=== PATIENT | female | born 1975 | race Caucasian/White ===

== ENCOUNTER 2017-01-10 13:32 | Observation (INO) ==
[2017-01-10] MEDS ORDERED: 0.9 % Sodium Chloride 1,000 ML IVC ONE (14:22)
[2017-01-10] MEDS ORDERED: *HR* Morphine 2 MG/ML SYRINGE IVP ONE (14:22)
[2017-01-10] MEDS ORDERED: Ondansetron 4 MG/2 ML VIAL IVP ONE ×2 (14:22→16:18)
[2017-01-10 14:43] LABS: Basophils % 0.4 %; Eosinophils # 0.1 K/mcL (0.0-0.6); Hematocrit 39.1 % (35.3-44.9); Hemoglobin 12.6 g/dL (11.5-15.4); Immature Granulocytes % 0.3 % (0-4); Lymphocytes # 2.3 K/mcL (0.6-4.6); Mean Corpuscular HGB Conc 32.2 g/dL (31.6-35.5); Mean Corpuscular Hemoglobin 25.6 pg (28.0-33.3); Mean Corpuscular Volume 79.5 fL (83.0-100.0); Mean Platelet Volume 9.3 fL (9.4-12.4); Monocytes # 0.5 K/mcL (0.0-1.3); Monocytes % 7.2 %; Platelet Count 343 K/mcL (140-400); Red Blood Count 4.92 M/mcL (3.82-4.97); Red Cell Distribution Width 14.4 % (11.5-14.5); Segmented Neutrophils % 57.1 %
[2017-01-10 14:57] LABS: Alanine Aminotransferase 22 Units/L (0-55); Albumin 3.6 g/dL (3.5-5.0); Albumin/Globulin Ratio 0.9 (1.1-2.2); Alkaline Phosphatase 55 Units/L (38-126); Amylase 42 Units/L (25-125); Aspartate Amino Transferase 23 Units/L (5-34); BUN/Creatinine Ratio 6 (6-26); Bilirubin,Direct 0.2 mg/dL (0.0-0.5); Bilirubin,Indirect 0.2 mg/dL (0.0-1.2); Bilirubin,Total 0.4 mg/dL (0.2-1.2); Blood Urea Nitrogen 6 mg/dL (7-20); Calcium 9.3 mg/dL (8.6-10.8); Carbon Dioxide 22 mEq/L (19-29); Chloride 108 mEq/L (98-109); Glucose 101 mg/dL (70-99); Lipase 49 Units/L (8-78); Osmolality,Calculated 288 (280-300); Sodium 140 mEq/L (136-145); Total Protein 7.6 g/dL (6.0-8.3); eGFR For African Americans > 60 (> 60); eGFR For Non-African Americans > 60 (> 60)
--- NOTE | 2017-01-10 15:00 | Emergency Department Note ---
Disposition Clinical Impression: Intractable nausea and vomiting Qualifiers: Vomiting type: unspecified Qualified Code(s): R11.2 - Nausea with vomiting, unspecified Disposition: Admitted As Inpatient Condition: Fair Time of Disposition: 17:25 Abdominal Pain HPI - General Chief Complaint: ED Abdominal Pain Stated Complaint: vomiting Time Seen by Provider: 01/10/17 13:40 Source: patient Mode of arrival: ambulatory Limitations: no limitations Nursing Notes Reviewed: Yes Vital Signs Reviewed: Yes - History of Present Illness HPI Narrative: 41-year-old female with history of abdominal pain, patient has been having abdominal pain for several weeks. Nausea and vomiting. Patient states that she has recently been having diarrhea. Patient reports nonradiating 8 out of 10 suprapubic, cramping pain. She does have a history of endometriosis and is on Lupron, no recent vaginal bleeding or discharge. Patient states that she had negative brain status last week, negative ultrasound last week of her gallbladder. Pt Subjective Complaint: abdominal pain Consistency: intermittent Location: suprapubic Pain Scale: 7 Quality: cramping Radiation: suprapubic Migration to: no migration Improves with: nothing Worsens with: eating Associated symptoms: Reports: nausea, vomiting, diarrhea, fever, chills. Denies : dysuria, hematemesis, hematochezia, melena - Related Data Home Medications Medication Instructions Recorded Confirmed Lisinopril [Zestril] 5 mg PO DAILY 11/25/15 01/10/17 Cetirizine HCl [Zyrtec] 10 mg PO DAILY 02/06/16 01/10/17 Lovastatin 40 mg PO HS 02/06/16 01/10/17 Metformin [Glucophage] 1,000 mg PO BIDWM 02/06/16 01/10/17 Naproxen Sodium [Naprelan] 500 mg PO PRN PRN 02/06/16 01/10/17 Tizanidine HCl 2 - 4 mg PO HS 02/06/16 01/10/17 Norethindrone Acetate 5 mg PO DAILY 04/22/16 01/10/17 Fluocinonide [Fluocinonide] 1 appl TP 3XW 12/22/16 01/10/17 Glimepiride [Amaryl] 1 mg PO QAM 12/22/16 01/10/17 Leuprolide Acetate [Lupron Depot] 3.75 mg IM QMONTH 12/22/16 01/10/17 Sumatriptan Succ/Naproxen Sod 1 each PO DAILY PRN 12/22/16 01/10/17 [Treximet 85-500 mg Tablet] Albuterol Sulfate [Albuterol 2 puff IH Q4H PRN 01/10/17 01/10/17 Inhaler] Metoclopramide [Reglan] 10 mg PO TID PRN 01/10/17 01/10/17 Omeprazole [PriLOSEC] 40 mg PO DAILY 01/10/17 01/10/17 Pioglitazone HCl [Actos] 45 mg PO DAILY 01/10/17 01/10/17 SitaGLIPtin [Januvia] 100 mg PO DAILY 01/10/17 01/10/17 Sucralfate [Carafate] 1 gm PO ACHS 01/10/17 01/10/17 Previous Rx's Medication Instructions Recorded Ondansetron HCl [Zofran] 4 mg PO TID PRN #10 tablet 12/22/16 Allergies Allergy/AdvReac Type Severity Reaction Status Date / Time cefuroxime [From Ceftin] Allergy Rash Verified 01/10/17 13:36 darifenacin [From Enablex] Allergy See Verified 01/10/17 13:36 Comments Penicillins Allergy Rash Verified 01/10/17 13:36 Sulfa (Sulfonamide Allergy Rash Verified 01/10/17 13:36 Antibiotics) sulfamethoxazole Allergy Rash Verified 01/10/17 13:36 [From Bactrim] trimethoprim [From Bactrim] Allergy Rash Verified 01/10/17 13:36 metformin AdvReac Vomiting Verified 01/10/17 13:36 All systems ED: reviewed and negative except as stated. 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 HEENT: NCAT, sclera anicteric, PERRLA bilaterally, normal external ears bilaterally, nasal septum nondeviated, average dentition, MMM Neck: normal inspection, neck is supple, trachea midline Resp: normal chest inspection, CTA bilaterally, no resp distress CV: RRR, no m/g/r GI: Obese abdomen, tenderness to palpation suprapubic, no rebound or guarding. No palpable masses nor vital spinal megaly Back: normal inspection, no tenderness to palpation Neuro: A&O3, no gross motor or sensory deficits bilaterally MSK: normal inspection, bilateral UE and LE with normal ROM Psych: anxious Skin: No rashes, skin warm, dry, intact - General General appearance: alert, in no apparent distress Course Course Narrative: 41-year-old female with abdominal pain, no specific clear etiology we will check abdominal lab work, urinalysis evaluation and antiemetics and pain control , reassessed. Patient recently had a gallbladder ultrasound that was negative, except for gastric emptying study and scopes as an outpatient. CT Abdomen to evaluate for other abdominal pathology,. - Reevaluation(s) Reevaluation #1: Reevaluation, patient is required multiple rounds of morphine and Zofran and is still not achieve relief of her symptoms, patient does not think that she can tolerate going home and is not tolerating by mouth fluids and food at home. We will admit the patient for intractable nausea vomiting abdominal pain at this time. Hodspitalist edward accepted drug screen added. Time: 17:23 Vital Signs Temperature 97.5 F L 01/10/17 13:33 Pulse Rate 87 01/10/17 13:33 Respiratory Rate 16 01/10/17 13:33 Blood Pressure 125/00 01/10/17 13:33 O2 Sat by Pulse Oximetry 97 01/10/17 13:33 Temperature 97.5 F L 01/10/17 13:33 Pulse Rate 79 01/10/17 17:20 Respiratory Rate 16 01/10/17 17:58 Blood Pressure 125/88 01/10/17 17:58 O2 Sat by Pulse Oximetry 99 01/10/17 17:20 Oxygen Delivery Oxygen Delivery Room Air Abdominal Pain - MDM Narrative Medical decision making narrative: 41-year-old female admitted for intractable nausea vomiting, negative workup including negative , CT scan of abdomen, nonsurgical abdomen on exam however patient still continues to have pain despite analgesia and Zofran so was admitted to the hospitalist service, patient does request further endoscopic or colonoscopic evaluation, discussed that she will need to discuss this with her admitting service - Differential Diagnosis Differential Diagnosis: Likely: abdominal pain non-specific, acute appendicitis , diverticulitis - Medical Records Medical records reviewed: Yes I reviewed the patient's medical records. - Lab Data Lab results reviewed: Yes I reviewed the patient's lab results. Result diagrams: 01/10/17 14:36 01/10/17 14:36 Lab Results 01/10/17 01/10/17 01/10/17 Range/Units 13:15 13:15 13:15 WBC (4.3-11.1) K/mcL RBC (3.82-4.97) M/mcL Hgb (11.5-15.4) g/dL Hct (35.3-44.9) % MCV (83.0-100.0) fL MCH (28.0-33.3) pg MCHC (31.6-35.5) g/dL RDW (11.5-14.5) % Plt Count (140-400) K/mcL MPV (9.4-12.4) fL Immature Gran % (0-4) % Seg Neutrophils % % Lymphocytes % % Monocytes % % Eosinophils % % Basophils % % Neutrophils # (1.6-8.9) K/mcL Lymphocytes # (0.6-4.6) K/mcL Monocytes # (0.0-1.3) K/mcL Eosinophils # (0.0-0.6) K/mcL Basophils # (0.0-0.2) K/mcL Sodium (136-145) mEq/L Potassium (3.5-4.5) mEq/L Chloride (98-109) mEq/L Carbon Dioxide (19-29) mEq/L BUN (7-20) mg/dL Creatinine (0.57-1.11) mg/dL Est GFR ( Amer) (> 60) Est GFR (Non-Af Amer) (> 60) BUN/Creatinine Ratio (6-26) Glucose (70-99) mg/dL Calculated Osmolality (280-300) Calcium (8.6-10.8) mg/dL Total Bilirubin (0.2-1.2) mg/dL Direct Bilirubin (0.0-0.5) mg/dL Indirect Bilirubin (0.0-1.2) mg/dL AST (5-34) Units/L ALT (0-55) Units/L Alkaline Phosphatase (38-126) Units/L Troponin I (0-0.03) ng/mL Serum Total Protein (6.0-8.3) g/dL Albumin (3.5-5.0) g/dL Globulin (2.4-3.5) g/dL Albumin/Globulin Ratio (1.1-2.2) Amylase (25-125) Units/L Lipase (8-78) Units/L Urine Color Yellow (Yellow) Urine Clarity Cloudy A (Clear) Urine pH 6.0 (5.0-8.0) pH Units Ur Specific [place] 1.019 (1.010-1.025) Urine Protein Trace (Neg-Trace) mg/dL Urine Glucose (UA) Normal (Normal) mg/dL Urine Ketones Negative (Negative) mg/dL Urine Blood Negative (Negative) Urine Nitrite Negative (Negative) Urine Bilirubin Negative (Negative) Urine Urobilinogen Normal (Normal) mg/dL Ur Leukocyte Esterase Negative (Negative) Urine Microscopic RBC 0-3 (0-3) per hpf Urine Microscopic WBC 3-5 H (0-3) per hpf Ur Squamous Epith Cells Many H (None-Few) per lpf Urine Bacteria Moderate H (None-Few) per hpf Hyaline Casts None Seen (None-Few) per lpf Ur Culture Indicated? NO (NO) Urine Test Negative (Negative) Urine Opiates Screen Negative (Zkuisz=290) ng/mL Ur Barbiturates Screen Negative (Hfskxq=911) ng/mL Ur Phencyclidine Scrn Negative (Cutoff=25) ng/mL Ur Amphetamines Screen Negative (Dszufp=6068) ng/mL U Benzodiazepines Scrn Negative (Vuvhjj=528) ng/mL Urine Cocaine Screen Negative (Cutoff= 300) ng/mL U Marijuana (THC) Screen Negative (Cutoff = 50) ng/mL 01/10/17 01/10/17 01/10/17 Range/Units 14:36 14:36 14:36 WBC 7.1 (4.3-11.1) K/mcL RBC 4.92 (3.82-4.97) M/mcL Hgb 12.6 (11.5-15.4) g/dL Hct 39.1 (35.3-44.9) % MCV 79.5 L (83.0-100.0) fL MCH 25.6 L (28.0-33.3) pg MCHC 32.2 (31.6-35.5) g/dL RDW 14.4 (11.5-14.5) % Plt Count 343 (140-400) K/mcL MPV 9.3 L (9.4-12.4) fL Immature Gran % 0.3 (0-4) % Seg Neutrophils % 57.1 % Lymphocytes % 33.0 % Monocytes % 7.2 % Eosinophils % 2.0 % Basophils % 0.4 % Neutrophils # 4.0 (1.6-8.9) K/mcL Lymphocytes # 2.3 (0.6-4.6) K/mcL Monocytes # 0.5 (0.0-1.3) K/mcL Eosinophils # 0.1 (0.0-0.6) K/mcL Basophils # 0.0 (0.0-0.2) K/mcL Sodium 140 (136-145) mEq/L Potassium 4.0 (3.5-4.5) mEq/L Chloride 108 (98-109) mEq/L Carbon Dioxide 22 (19-29) mEq/L BUN 6 L (7-20) mg/dL Creatinine 1.01 (0.57-1.11) mg/dL Est GFR ( Amer) > 60 (> 60) Est GFR (Non-Af Amer) > 60 (> 60) BUN/Creatinine Ratio 6 (6-26) Glucose 101 H (70-99) mg/dL Calculated Osmolality 288 (280-300) Calcium 9.3 (8.6-10.8) mg/dL Total Bilirubin 0.4 (0.2-1.2) mg/dL Direct Bilirubin 0.2 (0.0-0.5) mg/dL Indirect Bilirubin 0.2 (0.0-1.2) mg/dL AST 23 (5-34) Units/L ALT 22 (0-55) Units/L Alkaline Phosphatase 55 (38-126) Units/L Troponin I 0.00 (0-0.03) ng/mL Serum Total Protein 7.6 (6.0-8.3) g/dL Albumin 3.6 (3.5-5.0) g/dL Globulin 4.0 H (2.4-3.5) g/dL Albumin/Globulin Ratio 0.9 L (1.1-2.2) Amylase 42 (25-125) Units/L Lipase 49 (8-78) Units/L Urine Color (Yellow) Urine Clarity (Clear) Urine pH (5.0-8.0) pH Units Ur Specific [place] (1.010-1.025) Urine Protein (Neg-Trace) mg/dL Urine Glucose (UA) (Normal) mg/dL Urine Ketones (Negative) mg/dL Urine Blood (Negative) Urine Nitrite (Negative) Urine Bilirubin (Negative) Urine Urobilinogen (Normal) mg/dL Ur Leukocyte Esterase (Negative) Urine Microscopic RBC (0-3) per hpf Urine Microscopic WBC (0-3) per hpf Ur Squamous Epith Cells (None-Few) per lpf Urine Bacteria (None-Few) per hpf Hyaline Casts (None-Few) per lpf Ur Culture Indicated? (NO) Urine Test (Negative) Urine Opiates Screen (Irqdlu=504) ng/mL Ur Barbiturates Screen (Jjgbvo=010) ng/mL Ur Phencyclidine Scrn (Cutoff=25) ng/mL Ur Amphetamines Screen (Fextja=5484) ng/mL U Benzodiazepines Scrn (Jmooui=497) ng/mL Urine Cocaine Screen (Cutoff= 300) ng/mL U Marijuana (THC) Screen (Cutoff = 50) ng/mL - Radiology Data Radiology results reviewed: Yes I reviewed the patient's radiology results. Abdomen/Pelvis CT 01/10/17 14:23 IMPRESSION: No acute findings within the abdomen or pelvis. Colonic diverticulosis with no acute features. No CT evidence of appendicitis. D/ / 01/10/2017 16:06:05 Ab Pete MD / [facility] Interpreting Provider: Ab Pete MD - EKG Data EKG attestation: Yes I reviewed and interpreted this EKG. EKG shows normal: sinus rhythm Rate: normal (60 bpm NV 145 0 74 QTc [address] elevations or depressions, noprevious EKG) When compared to previous EKG there are: previous EKG unavailable Attestation Statement - Attestation Attestation: I personally interviewed and examined this patient and my medical decision- making was reviewed with the ED Resident Physician, Dr. Medeiros. I agree with the documented findings, disposition and treatment plan as described in the documentation. Pt is a 41-year-old white female here with intermittent suprapubic abdominal pain since November. Patient has been having more frequent episodes, and insists that this pain has been postprandial in nature. Patient has been changing her diet and has had no relief of his suprapubic pain. Patient has no other symptoms no bowel changes no urinary symptoms no flank pain no fevers or chills. No vaginal complaints no abnormal vaginal bleeding. Patient is on Lupron for endometriosis and sees her COUNSELING DEPARTMENT CHAIR regularly. Labs and imaging here unremarkable. Patient is feeling better after medicine administration. I do not have any concerns for surgical abdomen as patient has no peritoneal signs and her abdominal exam has remained stable throughout her ED course. Reevaluation patient feels that if she goes home she will be able to tolerate anything by mouth and is afraid to consume anything beyond the baby feels that she has been having at home. She is still having ongoing suprapubic pain despite serial doses of IV pain medication in the emergency department. We will admit the patient for intractable lower abdominal pain as well as intractable nausea and vomiting. Patient's receiving IV fluids at this time and has had her pain medicine really administered. Patient's hemoglobin was stable at this time and case was discussed with the hospitalist at 1700
[2017-01-10 15:02] LABS: Bilirubin,Urine Negative (Negative); Blood,Urine Negative (Negative); Clarity,Urine Cloudy (Clear); Color,Urine Yellow (Yellow); Glucose,Urine (UA) Normal (Normal); Ketones,Urine Negative (Negative); Leukocyte Esterase,Urine Negative (Negative); Nitrite,Urine Negative (Negative); Protein,Urine Trace mg/dL (Neg-Trace); Specific Gravity,Urine 1.019 (1.010-1.025); Urobilinogen,Urine Normal (Normal)
[2017-01-10 15:04] LABS: Bacteria,Urine Moderate per hpf (None-Few); Hyaline Casts,Urine None Seen per lpf (None-Few); RBC,Urine 0-3 per hpf (0-3); Squamous Epithelial Cell,Urine Many per lpf (None-Few)
[2017-01-10] MEDS ORDERED: *HR* Morphine 2 MG/ML SYRINGE IV ONE (16:18)
[2017-01-10 17:40] LABS: Amphetamine Screen,Urine Negative ng/mL (Cutoff=1000); Barbiturate Screen,Urine Negative ng/mL (Cutoff=200); Benzodiazepines Screen,Urine Negative ng/mL (Cutoff=200); Cannabinoid Screen,Urine Negative ng/mL (Cutoff = 50); Cocaine Screen,Urine Negative ng/mL (Cutoff= 300); Opiate Screen,Urine Negative ng/mL (Cutoff=300); Phencyclidine Screen,Urine Negative ng/mL (Cutoff=25)
--- NOTE | 2017-01-10 20:02 | Internal Med History&Physical ---
<Bhaskar Dias - Last Filed: 01/10/17 20:32> Date of Encounter: 01/10/17 Time of Encounter: 19:45 Assessment and Plan (1) Gastroparesis Status: Acute Patient has history of diabetes with last A1c checked in 02/12 was 7.4. Currently on several oral diabetic medications. Report of nausea vomiting and abdominal pain going back to mid-November, this likely represents gastroparesis with all other workup so far been negative. We will start low-dose metoclopramide 5 mg 3 times a day Zofran as needed We will obtain A1c Diabetic diet Likely GI follow-up as outpatient (2) Nausea and vomiting Status: Acute Patient continued nausea and vomiting likely due to gastroparesis. We will treat as above Qualifiers: Vomiting type: unspecified Vomiting Intractability: non-intractable Qualified Code(s): R11.2 - Nausea with vomiting, unspecified (3) Diabetes mellitus Status: Acute Patient on several oral diabetic medications at home. We will hold home by mouth diabetic medications Nightly basal subcutaneous insulin Medium dose sliding scale subcutaneous insulin Qualifiers: Diabetes mellitus type: type 2 Diabetes mellitus complication status: without complication Diabetes mellitus detention insulin use: without detention use Qualified Code(s): E11.9 - Type 2 diabetes mellitus without complications (4) Abdominal pain Status: Acute Patient abdominal cramping likely due to gastroparesis and will treat as above. History of endometriosis also possibly contributory and potential follow-up with EVENT MARKETING ASSISTANT as outpatient is warranted. We will hold further narcotic pain medications due to concerns of worsening the patient's gastric motility. Qualifiers: Abdominal location: unspecified location Qualified Code(s): R10.9 - Unspecified abdominal pain (5) DVT prophylaxis Status: Acute 5000 units heparin subcutaneous 3 times a day Internal Medicine - H&P: HPI Chief complaint: Nausea/vomiting and abdominal pain Admitted From: Emergency Dept Plans for Post Hospital Care: Home History of present illness: Ms. Turner is a 41 year old female with prior medical history significant for endometriosis, diabetes mellitus, migraines, hyperlipidemia presents to [facility] after having continued nausea, vomiting, abdominal pain since mid November. She states it does not occur with every meal, nor does recur every day, but does note that has been worsening. She has seen her PCP who prescribed metoclopramide, but she was reluctant to take this medication due to her concerns with potential side effects. In the brief duration that she did take the medication she states it did help her control her nausea. She reports that , at the suggestion of her doctor, she started eating baby food to assist in her nausea and abdominal pain. She states that this helps it does reduce the amount of nausea she has, yesterday she tried a piece of cornbread and has had continued nausea and abdominal pain since that time. When she does vomit she reports that it is either stomach contents or bile. She also reports that the pain in her abdomen is exacerbated by bearing down, often with bowel movements. She reports the abdominal pain that she is experiencing this is 69 in severity located in the epigastric, umbilical, suprapubic regions with some right sided abdominal involvement. She describes it as a cramping sensation. She reports she does have a history of endometriosis for which she is currently taking Lupron. She denies any urinary symptoms and states that she currently has a little diarrhea. She denies any hematemesis, coffee-ground emesis, hematochezia , or melena. Past Med Surg Social Fam HX - Past Medical History Medical history: diabetes, hyperlipidemia, migraine Psychiatric history: no psych history - Past Surgical History Surgical History: - Social History Smoking Status: Never smoker Smokeless Tobacco Status: No Alcohol use: none Drug use: none Internal Medicine - H&P: Meds Lisinopril [Zestril] 5 mg PO DAILY 11/25/15 [History] Cetirizine HCl [Zyrtec] 10 mg PO DAILY 02/06/16 [History] Lovastatin 40 mg PO HS 02/06/16 [History] Metformin [Glucophage] 1,000 mg PO BIDWM 02/06/16 [History] Naproxen Sodium [Naprelan] 500 mg PO PRN PRN 02/06/16 [History] Tizanidine HCl 2 - 4 mg PO HS 02/06/16 [History] Norethindrone Acetate 5 mg PO DAILY 04/22/16 [History] Fluocinonide 1 appl TP 3XW 12/22/16 [History] Glimepiride [Amaryl] 1 mg PO QAM 12/22/16 [History] Leuprolide Acetate [Lupron Depot] 3.75 mg IM QMONTH 12/22/16 [History] Ondansetron HCl [Zofran] 4 mg PO TID PRN #10 tablet 12/22/16 [Rx] Sumatriptan Succ/Naproxen Sod [Treximet 85-500 mg Tablet] 1 each PO DAILY PRN [History] Albuterol Sulfate [Albuterol Inhaler] 2 puff IH Q4H PRN 01/10/17 [History] Metoclopramide [Reglan] 10 mg PO TID PRN 01/10/17 [History] Omeprazole [PriLOSEC] 40 mg PO DAILY 01/10/17 [History] Pioglitazone HCl [Actos] 45 mg PO DAILY 01/10/17 [History] SitaGLIPtin [Januvia] 100 mg PO DAILY 01/10/17 [History] Sucralfate [Carafate] 1 gm PO ACHS 01/10/17 [History] Allergies cefuroxime [From Ceftin] Allergy (Verified 01/10/17 13:36) Rash darifenacin [From Enablex] Allergy (Verified 01/10/17 13:36) See Comments Raised BP Penicillins Allergy (Verified 01/10/17 13:36) Rash Sulfa (Sulfonamide Antibiotics) Allergy (Verified 01/10/17 13:36) Rash sulfamethoxazole [From Bactrim] Allergy (Verified 01/10/17 13:36) Rash trimethoprim [From Bactrim] Allergy (Verified 01/10/17 13:36) Rash metformin Adverse Reaction (Verified 01/10/17 13:36) Vomiting - Constitutional Constitutional: no chills, no fatigue, no fever(s), no weakness, no weight loss - EENT Eyes: no diplopia, no pain Nose, mouth and throat: no dry mouth, no sore throat - Cardiovascular Cardiovascular ROS IM: no chest pain, no diaphoresis, no dyspnea, no lightheadedness - Respiratory Respiratory: no cough, no hemoptysis, no dyspnea on exertion, no pain on inspiration - Gastrointestinal Gastrointestinal: as per HPI, abdominal pain, diarrhea, nausea, vomiting, no coffee ground emesis, no constipation, no hematemesis, no hematochezia, no melena - Genitourinary Genitourinary: no dysuria, no hematuria - Musculoskeletal Musculoskeletal ROS IM: no back pain - Integumentary Integumentary IM: no rash, no jaundice - Neurological Neurological ROS: headache(s), no loss of vision, no numbness, no tingling, no weakness - Constitutional Vitals: Temp Pulse Resp BP Pulse Ox 97.8 F 61 14 128/85 98 01/10/17 19:41 01/10/17 19:41 01/10/17 19:41 01/10/17 19:41 01/10/17 19:41 Exam: General: Cooperative, pleasant, no acute distress, alert and oriented 3, answers questions appropriately Head: Normocephalic, atraumatic Eye: Conjunctiva pink, sclera anicteric, EOMI, PERRL Neck: Supple, trachea midline, mucous membranes moist, no erythema or exudates noted in oropharynx Respiratory: No accessory muscle usage, clear to auscultation bilaterally, no wheezes/rhonchi/rales appreciated Cardiovascular: Regular rate and rhythm, S1 and S2 present, no murmurs/rubs/ gallops/clicks appreciated GI/abdominal: Nondistended, mild tenderness to palpation diffusely, soft, normal bowel sounds, no peritoneal signs Extremities: No calf tenderness, noncyanotic, no pedal edema appreciated, warm, lower extremity pulses palpable and symmetrical Neurological: Alert and oriented 3, no facial droop, no focal deficits Skin: Dry, intact, normal color Internal Med - H&P Results - Labs CBC & Chem 7: 01/10/17 14:36 01/10/17 14:36 <Patricia Jo - Last Filed: 01/11/17 14:16> Internal Medicine - H&P: HPI History of present illness: Ms. Turner is a 41 year old female All Systems PM: A 10-system review of systems was performed and is negative for pertinent findings except as documented above in the HPI. - Constitutional Vitals: Temp Pulse Resp BP Pulse Ox 98.0 F 70 14 119/73 98 01/11/17 11:18 01/11/17 11:18 01/11/17 11:18 01/11/17 11:18 01/11/17 11:18 Internal Med - H&P Results - Labs CBC & Chem 7: 01/11/17 04:19 01/11/17 04:19 Labs: Short CBC 01/11/17 Range/Units 04:19 WBC 6.7 (4.3-11.1) K/mcL Hgb 11.6 (11.5-15.4) g/dL Hct 35.8 (35.3-44.9) % Plt Count 325 (140-400) K/mcL Neutrophils # 3.6 (1.6-8.9) K/mcL BMP 01/11/17 04:19 Sodium 139 Potassium 3.7 Chloride 108 Carbon Dioxide 22 BUN 7 Creatinine 0.95 Glucose 117 H Calcium 8.5 L Liver Function 01/11/17 Range/Units 04:19 Total Bilirubin 0.5 (0.2-1.2) mg/dL AST 23 (5-34) Units/L ALT 22 (0-55) Units/L Alkaline Phosphatase 50 (38-126) Units/L Albumin 3.0 L (3.5-5.0) g/dL - Attending Attestation Patient seen and examined with IM resident, Julio Dias, agree with assessment and plan. Admitted for intractable nausea and vomiting, concern for possible gastroparesis, is scheduled for gastric emptying study by PCP but has not undergone test yet. All workup negative for acute issue (lipase normal, LFTs normal, CT abdomen/pelvis without acute abnormalities). Patient needs to follow up with roll trucker for further workup of endometriosis as possible cause of symptoms. Will monitor overnight and encourage reglan use as this helped in the past with symptoms.
[2017-01-10] MEDS ORDERED: *HR* Dextrose 50 % in Water (Syg) 50 ML SYRINGE IVP PRN (20:12)
[2017-01-10] MEDS ORDERED: D5% in Water 1,000 ML IV PRN (20:12)
[2017-01-10] MEDS ORDERED: Naloxone 0.4 MG/ML INJ IVP PRN (20:12)
[2017-01-10] MEDS ORDERED: Ondansetron 4 MG/2 ML VIAL IVP PRN (20:12)
[2017-01-10] MEDS ORDERED: Dextrose Gel 15 GM PO PRN ×2 (20:12)
[2017-01-10 20:40] LABS: Hemoglobin A1C 8.1 %
[2017-01-10] MEDS ORDERED: Insulin DETEMIR 100 UNIT/ML X5UNITS SQ SCH (21:00)
[2017-01-10] MEDS ORDERED: Insulin LISPRO 300 UNITS/3 ML VIAL SQ SCH (21:00)
[2017-01-10] MEDS: Acetaminophen 325 MG TABLET PO PRN (22:46)
[2017-01-10] MEDS: *HR* Heparin 5,000 UNIT/ML VIAL SQ SCH (22:46)
[2017-01-11] MEDS: Metoclopramide 10 MG/10 ML UD.LIQ PO SCH ×2 (00:13→09:02)
[2017-01-11 05:14] LABS: Basophils % 0.4 %; Eosinophils # 0.2 K/mcL (0.0-0.6); Eosinophils % 2.7 %; Hematocrit 35.8 % (35.3-44.9); Hemoglobin 11.6 g/dL (11.5-15.4); Immature Granulocytes % 0.3 % (0-4); Lymphocytes # 2.3 K/mcL (0.6-4.6); Lymphocytes % 34.4 %; Mean Corpuscular HGB Conc 32.4 g/dL (31.6-35.5); Mean Corpuscular Hemoglobin 26.4 pg (28.0-33.3); Mean Corpuscular Volume 81.4 fL (83.0-100.0); Monocytes # 0.6 K/mcL (0.0-1.3); Monocytes % 8.9 %; Neutrophils # 3.6 K/mcL (1.6-8.9); Platelet Count 325 K/mcL (140-400); Red Cell Distribution Width 14.4 % (11.5-14.5); Segmented Neutrophils % 53.3 %
[2017-01-11 05:28] LABS: Alanine Aminotransferase 22 Units/L (0-55); Albumin/Globulin Ratio 0.9 (1.1-2.2); Alkaline Phosphatase 50 Units/L (38-126); Aspartate Amino Transferase 23 Units/L (5-34); BUN/Creatinine Ratio 7 (6-26); Bilirubin,Total 0.5 mg/dL (0.2-1.2); Blood Urea Nitrogen 7 mg/dL (7-20); Calcium 8.5 mg/dL (8.6-10.8); Carbon Dioxide 22 mEq/L (19-29); Chloride 108 mEq/L (98-109); Globulin 3.5 g/dL (2.4-3.5); Glucose 117 mg/dL (70-99); Osmolality,Calculated 287 (280-300); Potassium 3.7 mEq/L (3.5-4.5); Sodium 139 mEq/L (136-145); Total Protein 6.5 g/dL (6.0-8.3); eGFR For African Americans > 60 (> 60); eGFR For Non-African Americans > 60 (> 60)
[2017-01-11] MEDS: *HR* Heparin 5,000 UNIT/ML VIAL SQ SCH (06:37)
[2017-01-11] MEDS: Acetaminophen 325 MG TABLET PO PRN (06:41)
--- NOTE | 2017-01-11 08:18 | Internal Med Progress Note ---
Date of Encounter: 01/11/17 Time of Encounter: 08:18 - Assessment and plan (1) Nausea and vomiting Current Visit: Yes Status: Acute Assessment and plan: Patient has a history of recently diagnosed diabetes with A1C of 8.1%. Presented with complaint of nause, vomiting, and abominal pain since mid- November that seemed to be shortly after eating. Patient was reluctant to start reglan as prescribed by her PCP. Counseled patient regarding medication. Patient reports she had a normal gallbladder ultrasound recently and is awaiting approval for HIDA scan per PCP. Improved symptoms this morning following dose of reglan. Abdomen/Pelvis CT revealed no acute findings, colonic diverticulosis, no appendicitis, no bowel dilation, and scattered colonic gas and stool. Continue Reglan Zofran as needed Diabetic diet Gastric empty study as outpatient. Qualifiers: Vomiting type: unspecified Vomiting Intractability: non-intractable Qualified Code(s): R11.2 - Nausea with vomiting, unspecified (2) Abdominal pain Current Visit: Yes Status: Acute Assessment and plan: Midline abdominal pain, improved. Hold opiate medication and recommend peer support specialist as outpatient if pain persists as she has a history of endometriosis. (3) Diabetes mellitus Current Visit: Yes Status: Acute Assessment and plan: Patient has a history of diabetes on several po meds, held. Glucose 117 Continue with sliding scale insulin and nighttime basal insulin. Continue to monitor Qualifiers: Diabetes mellitus type: type 2 Diabetes mellitus complication status: without complication Diabetes mellitus assisted insulin use: without assisted use Qualified Code(s): E11.9 - Type 2 diabetes mellitus without complications (4) DVT prophylaxis Current Visit: Yes Status: Acute Assessment and plan: Heparin sq for dvt ppx - Subjective Interval history: Patient reports that she has some nausea, improved from yesterday and she was able to tolerate about one pancake from this morning's meal. Very mild midline and rlq abdominal pain this morning. Patient denies fevers, chills, sweats, headaches, changes in vision or hearing, vomiting, chest pain, shortness of breath, changes in bowels or bladder, weakness, or loss of sensation. Discussed with patient about her reluctance to take the Reglan medication that was prescribed. Patient reports improvement with nausea while on medication. - Constitutional Vitals: Temp Pulse Resp BP Pulse Ox 98.0 F 63 14 130/81 97 01/11/17 07:17 01/11/17 07:17 01/11/17 07:17 01/11/17 07:17 01/11/17 07:17 General appearance: Present: cooperative, A&O X 3, no acute distress, obese, answers questions appropriately - Head Head exam: Present: atraumatic, normal inspection, normocephalic - Eye Eye exam: Present: EOMI, normal appearance, PERRL - ENT ENT exam: Present: mucous membranes moist, normal exam, normal external ear exam , normal oropharynx - Neck Neck exam general surgery: Present: full ROM, normal inspection, supple, trachea midline. Absent: lymphadenopathy, tenderness - Respiratory Respiratory exam: Present: CTAB. Absent: rales, rhonchi, wheezes - Cardiovascular Cardiovascular exam: Present: RRR, +S1, +S2 - GI/Abdominal GI/Abdominal exam: Present: normal bowel sounds, soft, tenderness (mild midline tenderness and rlq tenderness). Absent: distended, guarding, rebound - Extremities Exam Extremities exam: Present: full ROM, normal inspection, warm, radial pulses palpable and symetrical. Absent: pedal edema, tenderness - Neurological Exam Neurological exam: Present: alert, oriented X3, no focal deficits, strengths equal and symetr throughout. Absent: motor sensory deficit - Psychiatric Psychiatric exam: Present: normal affect, normal mood - Skin Skin exam: Present: dry, intact, normal color, warm. Absent: diaphoretic, erythema, pallor Internal Medicine: Result - Labs CBC & Chem 7: 01/11/17 04:19 01/11/17 04:19 Labs: Short CBC 01/11/17 Range/Units 04:19 WBC 6.7 (4.3-11.1) K/mcL Hgb 11.6 (11.5-15.4) g/dL Hct 35.8 (35.3-44.9) % Plt Count 325 (140-400) K/mcL Neutrophils # 3.6 (1.6-8.9) K/mcL BMP 01/11/17 04:19 Sodium 139 Potassium 3.7 Chloride 108 Carbon Dioxide 22 BUN 7 Creatinine 0.95 Glucose 117 H Calcium 8.5 L Liver Function 01/11/17 Range/Units 04:19 Total Bilirubin 0.5 (0.2-1.2) mg/dL AST 23 (5-34) Units/L ALT 22 (0-55) Units/L Alkaline Phosphatase 50 (38-126) Units/L Albumin 3.0 L (3.5-5.0) g/dL Consult Discharge Plan - Plan Referrals: Ronen Taylor DO [Primary Care Provider] -
[2017-01-11] MEDS: Insulin LISPRO 300 UNITS/3 ML VIAL SQ SCH ×2 (09:03→12:15)
--- NOTE | 2017-01-11 09:03 | Electrocardiograph Report ---
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
[2017-01-11 11:20] VITALS: BP 119/73
--- NOTE | 2017-01-11 11:23 | Discharge Summary ---
<Alexys Aj - Last Filed: 01/11/17 12:35> Date of Encounter: 01/11/17 Time of Encounter: 11:22 - Discharge Diagnosis (1) Nausea and vomiting Priority: Primary Status: Acute Comments: Patient has a history of recently diagnosed diabetes with A1C of 8.1%. Presented with complaint of nausea, vomiting, and abdominal pain since mid- November that seemed to be shortly after eating. Patient was reluctant to start reglan as prescribed by her PCP. Counseled patient regarding medication. Patient reports she had a normal gallbladder ultrasound recently and is awaiting approval for HIDA scan per PCP. Improved symptoms this morning following dose of reglan. Abd/Pelvis CT revealed no acute findings, colonic diverticulosis, no appendicitis, no bowel dilation, and scattered colonic gas and stool. Qualifiers: Vomiting type: unspecified Vomiting Intractability: non-intractable Qualified Code(s): R11.2 - Nausea with vomiting, unspecified (2) Abdominal pain Priority: Primary Status: Acute Comments: Midline abdominal pain , improved. Hold opiate medication and recommend surgical pathologist as outpatient if pain persist as she has a history of endometriosis. Qualifiers: Qualified Code(s): R10.84 - Generalized abdominal pain (3) Diabetes mellitus Priority: Secondary Status: Chronic Comments: Patient has history of diabetes on several po meds, held in patient. Glucose 117. Continue with sliding scale insulin and nighttime basal insulin. Continue to monitor Qualifiers: Diabetes mellitus type: type 2 Diabetes mellitus complication status: without complication Diabetes mellitus prison insulin use: without termite technician use Qualified Code(s): E11.9 - Type 2 diabetes mellitus without complications - Discharge Medications Home Medications: Lisinopril [Zestril] 5 mg PO DAILY 11/25/15 [History] Cetirizine HCl [Zyrtec] 10 mg PO DAILY 02/06/16 [History] Lovastatin 40 mg PO HS 02/06/16 [History] Metformin [Glucophage] 1,000 mg PO BIDWM 02/06/16 [History] Naproxen Sodium [Naprelan] 500 mg PO PRN PRN 02/06/16 [History] Tizanidine HCl 2 - 4 mg PO HS 02/06/16 [History] Norethindrone Acetate 5 mg PO DAILY 04/22/16 [History] Fluocinonide 1 appl TP 3XW 12/22/16 [History] Glimepiride [Amaryl] 1 mg PO QAM 12/22/16 [History] Leuprolide Acetate [Lupron Depot] 3.75 mg IM QMONTH 12/22/16 [History] Ondansetron HCl [Zofran] 4 mg PO TID PRN #10 tablet 12/22/16 [Rx] Sumatriptan Succ/Naproxen Sod [Treximet 85-500 mg Tablet] 1 each PO DAILY PRN [History] Albuterol Sulfate [Albuterol Inhaler] 2 puff IH Q4H PRN 01/10/17 [History] Metoclopramide [Reglan] 10 mg PO TID PRN 01/10/17 [History] Omeprazole [PriLOSEC] 40 mg PO DAILY 01/10/17 [History] Pioglitazone HCl [Actos] 45 mg PO DAILY 01/10/17 [History] SitaGLIPtin [Januvia] 100 mg PO DAILY 01/10/17 [History] Sucralfate [Carafate] 1 gm PO ACHS 01/10/17 [History] Allergies/Adverse Reactions: Allergies cefuroxime [From Ceftin] Allergy (Verified 01/10/17 13:36) Rash darifenacin [From Enablex] Allergy (Verified 01/10/17 13:36) See Comments Raised BP Penicillins Allergy (Verified 01/10/17 13:36) Rash Sulfa (Sulfonamide Antibiotics) Allergy (Verified 01/10/17 13:36) Rash sulfamethoxazole [From Bactrim] Allergy (Verified 01/10/17 13:36) Rash trimethoprim [From Bactrim] Allergy (Verified 01/10/17 13:36) Rash metformin Adverse Reaction (Verified 01/10/17 13:36) Vomiting Date of admission: 01/10/17 17:27 Primary care physician: Ronen Taylor DO Discharging clinician: Luis Miguel Rae (Alexys Aj) Anticipated date of discharge: 01/11/17 - Patient Status Disposition: Home, Self-Care Condition: Good Functional capacity at discharge: independent ambulation Overall status at discharge: patient is progressing back to baseline - Discharge Instructions Instructions: Diabetes Mellitus Type 2 in Adults (DC), Acute Nausea and Vomiting (GEN), Gastroparesis (GEN) Follow Up With: Ronen Taylro DO [Primary Care Provider] - 01/16/17 11:30 am Additional Instructions: Follow up with your primary care provider within 7 days regarding this hospital stay. Recommend eating small meals multiple times throughout the day. Continue to take Reglan as prescribed. - Diet and Activity Activity: increase activity as tolerated Diet: diabetic diet Interval History: Patient reports that she has some nausea, improved from yesterday and she was able to tolerate breakfast. Very mild midline and rlq abdominal pain this morning. Patient denies fevers, chills, sweats, headaches, changes in vision or hearing, vomiting, chest pain, shortness of breath, changes in bowels or bladder, weakness, or loss of sensation. Discussed with patient about her reluctance to take the Reglan medication that was prescribed. Patient reports improvement in nausea while on medication. Hospital course: Ms. Turner is a 41 year old female with history of newly diagnosed diabetes, migraines, hyperlipidemia, and endometriosis who presented to the ED with complaint of nausea, vomiting, abdominal pain worsening since mid-November. Patient reported it was worse after eating meals and was prescribed Reglan. Patient has not been using reglan due to worry about possible side effects. Abdominal pain was noted to be epigastric, periumbilical, and suprapubic with occasional rlq tenderness. Abdomen/Pelvis CT revealed no acute findings, colonic diverticulosis, no appendicitis, no bowel dilation and scattered colonic gas and stool. Patient received dose of reglan with improvement of symptoms. Was able to tolerate breakfast this morning with dose of reglan. Patient to be discharged with follow up with PCP in 7 days regarding hospital stay. To follow up with PCP regarding the already scheduled gastric empty study. - Time Spent with Patient Total time spent providing and/or coordinating discharge services: Less than 30 minutes - Constitutional Vitals: Temp Pulse Resp BP Pulse Ox 98.0 F 70 14 119/73 98 01/11/17 11:18 01/11/17 11:18 01/11/17 11:18 01/11/17 11:18 01/11/17 11:18 General appearance: Present: cooperative, A&O X 3, no acute distress, obese, answers questions appropriately - Head Head exam: Present: atraumatic, normal inspection, normocephalic - Eye Eye exam: Present: EOMI, normal appearance, PERRL - ENT ENT exam: Present: mucous membranes moist, normal exam, normal external ear exam , normal oropharynx - Neck Neck exam general surgery: Present: full ROM, normal inspection, supple, trachea midline. Absent: lymphadenopathy, tenderness - Respiratory Respiratory exam: Present: CTAB. Absent: rales, rhonchi, wheezes - Cardiovascular Cardiovascular exam: Present: RRR, +S1, +S2 - GI/Abdominal GI/Abdominal exam: Present: normal bowel sounds, soft, tenderness (mild midline tenderness and rlq tenderness) - Extremities Exam Extremities exam: Present: full ROM, normal capillary refill, normal inspection , warm, radial pulses palpable and symetrical. Absent: pedal edema, tenderness - Back Exam Back exam: Present: full ROM, normal inspection. Absent: tenderness - Neurological Exam Neurological exam: Present: alert, CN II-XII intact, normal gait, oriented X3, reflexes normal, no focal deficits, strengths equal and symetr throughout. Absent: motor sensory deficit, facial droop, speech deficit - Skin Skin exam: Present: dry, intact, normal color, warm. Absent: erythema, pallor <Luis Miguel Rae T - Last Filed: 01/11/17 13:16> Date of admission: 01/10/17 17:27 Primary care physician: Ronen Taylor DO Hospital course: Ms. Turner is a 41 year old female - Time Spent with Patient Total time spent providing and/or coordinating discharge services: - Constitutional Vitals: Temp Pulse Resp BP Pulse Ox 98.0 F 70 14 119/73 98 01/11/17 11:18 01/11/17 11:18 01/11/17 11:18 01/11/17 11:18 01/11/17 11:18 - Attending Attestation I examined this patient and my medical decision-making was reviewed with the STRINGED INSTRUMENT TUNER/PA/Advanced Practice Nurse/Resident Physician. I agree with the documented findings, disposition and treatment plan as described except to the extent set forth below. 41 Y/O F, Obese, recently diagnosed DM, admitted to observation with complains of abdominal pain She is seen at bedside with her spouse, she was able to tolerate her breakfast She has not had any vomiting witnessed sine admission, she does complain of pain in the abdomen 3-5/10 at time of review, said to be cramping Work up in chem, cbc, lipase, LFT,amylase, CXR, abdomen imaging is not remarkable for an acute reason why she is having abdominal pain She does have a diagnosis of endometriosis but states she never got a laparoscopy Physical exam is unremarkable She wants endoscopy or colonoscopy, she is reassured. Educated on dietary modification She may continue reglan at home although I strongly doubt that this is gastroparesis, recommend follow up with PCP and outpatient work up with ORDER WORKER Her PCP may refer her to GI if symptoms persist There is no indication for in-patient endoscopic work up at this time... Rest of details as in resident's documentation
[2017-01-11] MEDS ORDERED: Ibuprofen 400 MG TABLET PO PRN (12:03)
== END 2017-01-11 12:27 | disposition home or self-care (01) ==
LOC: EMEROO 13:32 → 3BNU 13:32 → SUATTDRO 17:27 → 3BNU 18:57
PROVIDERS: ADMIT Internal Medicine; ATTEND Internal Medicine

== ENCOUNTER 2017-02-21 09:41 | Observation (INO) ==
[2017-02-21] MEDS ORDERED: cefOXitin 2,000 MG in D5% in Water (Mini-Bag+) 100 ML IVPB ONE (09:54)
[2017-02-21] MEDS ORDERED: Ringers Solution, Lactated 1,000 ML IVC SCH (10:00)
[2017-02-21] MEDS ORDERED: Lidocaine -MPF 1% 2 ML VIAL ONE (10:25)
--- NOTE | 2017-02-21 10:28 | Anesthesia Evaluation PreOp ---
Date of Encounter: 02/21/17 Time of Encounter: 10:26 - Past History Planned Operation: Lap. Krys Cardiac History: Denies any Significant Hx, Hyperlipidemia Pulmonary History: Denies Any Significant HX DATA WAREHOUSE ADMINISTRATOR History: Other (Migraines) Other Medical History: Renal (Stones), Diabetes Type II Anesthesia History: Past Anesthesia (D&C, C/S), Problems (Slow to wake up) : No Test: Negative (02/16/2017) Alcohol Use: none Drug use: none Medications and Allergies Metformin [Glucophage] 1,000 mg PO BIDWM 02/06/16 [History] Ondansetron HCl [Zofran] 4 mg PO TID PRN #10 tablet 12/22/16 [Rx] Albuterol Sulfate [Albuterol Inhaler] 2 puff IH Q4H PRN 01/10/17 [History] Omeprazole [PriLOSEC] 40 mg PO DAILY 01/10/17 [History] Pioglitazone HCl [Actos] 45 mg PO DAILY 01/10/17 [History] Fluticasone Propionate Nasal [Flonase] 2 spray NS DAILY #1 bottle 01/29/17 [Rx] Ibuprofen [Motrin] 600 mg PO Q6HR PRN #10 tab 01/29/17 [Rx] Lisinopril [Zestril] 5 mg PO DAILY 01/29/17 [History] Lovastatin [Lovastatin] 40 mg PO DAILY 01/29/17 [History] Naproxen [Naprosyn] 500 mg PO BID PRN 01/29/17 [History] SitaGLIPtin [Januvia] 100 mg PO DAILY 01/29/17 [History] Sumatriptan Succ/Naproxen Sod [Treximet 85-500 mg Tablet] 1 each PO DAILY PRN [History] Tizanidine HCl 4 mg PO HS PRN 01/29/17 [History] Leuprolide Acetate [Lupron Depot] 3.75 mg IJ Q6M 02/14/17 [History] Metoclopramide [Reglan] 10 mg PO DAILY PRN 02/14/17 [History] Norethindrone Acetate 5 mg PO DAILY 02/14/17 [History] Sucralfate [Carafate] 1 gm PO QID 02/14/17 [History] Allergies cefuroxime [From Ceftin] Allergy (Verified 02/14/17 08:36) Rash darifenacin [From Enablex] Allergy (Verified 02/14/17 08:36) See Comments Raised BP Penicillins Allergy (Verified 02/14/17 08:36) Rash Sulfa (Sulfonamide Antibiotics) Allergy (Verified 02/14/17 08:36) Rash sulfamethoxazole [From Bactrim] Allergy (Verified 02/14/17 08:36) Rash trimethoprim [From Bactrim] Allergy (Verified 02/14/17 08:36) Rash metformin Adverse Reaction (Verified 02/14/17 08:36) Vomiting - Meds/Allergy Pre-op Review Medications Reviewed: Yes Allergies Reviewed: Yes Beta Blockers on Current Med List: No Anesthesia Results - Labs Laboratory Tests 01/11/17 01/11/17 01/31/17 04:19 04:19 17:15 WBC 6.7 Hgb Hct 35.8 INR 1.1 Sodium 139 Potassium 3.7 Chloride 108 Carbon Dioxide 22 Creatinine 0.95 Hemoglobin A1c Serum , Qual 02/16/17 02/16/17 02/16/17 18:22 18:22 18:22 WBC Hgb 11.9 Hct INR Sodium Potassium Chloride Carbon Dioxide Creatinine Hemoglobin A1c 7.3 H Serum , Qual Negative Anesthesia Exam O2 Sat Height 1.59 m Height 1.59 m Height 1.59 m Weight 96.615 kg Weight 96.615 kg Weight 96.615 kg O2 Sat by Pulse Oximetry 98 Vital Signs Temp Pulse Resp BP Pulse Ox 97.8 F 101 18 121/78 98 02/21/17 10:00 02/21/17 10:00 02/21/17 10:00 02/21/17 10:00 02/21/17 10:00 Blood glucose: 113 Height: 5'2'' Weight: 213# NPO (# of Hours): > 8 hrs Pain Scale: 0 Pain Scale Used: Numeric (1 - 10) - HEENT Pupil (Motor): EOMI Mallampati: III (TMJ) Teeth: Normal Oral Opening: Greater than 3 - DATA WAREHOUSE ADMINISTRATOR LOC: Oriented DATA WAREHOUSE ADMINISTRATOR Motor: Normal RUE, Normal LUE, Normal RLE, Normal LLE, Normal Face DATA WAREHOUSE ADMINISTRATOR Sensory: Normal: RUE, LUE, RLE, LLE, Face - Cardiac Rhythm: Regular Murmur: None JVD: No Carotid Bruit: No - Pulmonary Breath Sounds: bilateral Clear Respiratory Effort: Symmetrical Anesthesia Assess/Plan ASA Score: 3 Modified [place] Scale for Level of Consciousness: Cooperative, oriented, and tranquil Anesthetic Plan: General Autologous Blood: Yes Monitoring Plan: Standard Monitors Recovery Plan: PACU
[2017-02-21] MEDS ORDERED: *HR* HYDROmorphone (PF) 1 MG/ML SYRINGE IVP PRN ×2 (10:44→21:06)
[2017-02-21] MEDS ORDERED: *HR* Promethazine 25 MG/ML VIAL IVP PRN (10:44)
[2017-02-21] MEDS ORDERED: Lidocaine -MPF 4% 5 ML AMPUL ONE (10:49)
[2017-02-21] MEDS ORDERED: *HR* Rocuronium Bromide 50 MG/5 ML VIAL ONE (10:49)
[2017-02-21] MEDS ORDERED: *HR* Phenylephrine 10 MG/ML VIAL ONE (10:49)
[2017-02-21] MEDS ORDERED: Neostigmine Methylsulfate 3 MG/3 ML SYRINGE ONE (10:49)
[2017-02-21] MEDS ORDERED: *HR* Succinylcholine 200 MG/10 ML VIAL IVP ONE (10:49)
[2017-02-21] MEDS ORDERED: Lidocaine -MPF 2% 2 ML VIAL ONE (10:50)
[2017-02-21] MEDS ORDERED: *HR* FentaNYL (PF) 100 MCG/2 ML VIAL ONE ×2 (10:50→12:41)
[2017-02-21] MEDS ORDERED: Dexamethasone 4 MG/ML VIAL ONE (10:50)
[2017-02-21] MEDS ORDERED: *HR* Midazolam HCl 2 MG/2 ML VIAL ONE (10:50)
[2017-02-21] MEDS ORDERED: *HR* Propofol 200 MG/20 ML VIAL IVP ONE (10:50)
[2017-02-21] MEDS ORDERED: Ondansetron 4 MG/2 ML VIAL ONE (10:50)
--- NOTE | 2017-02-21 11:17 | History & Physical Report ---
Date of Encounter: 02/21/17 Time of Encounter: 11:16 24 Hour HP Update - Instructions Instructions: If the History and Physical is less than 30 days old and was completed prior to A.M. admission and or procedure and has NOT been updated on calendar day of procedure please complete this update prior to performing procedure. - Update Patient reports changes in Medical Condition: No Changes in examination, assessment, or condition: No Changes in Medication: No Preop tests/diagnostics Reviewed: Yes Pre-Op MRSA Screen: Negative Surgery Remains Indicated: Yes Consent for Planned Operative Procedure(s) Verified: Yes - Pre-Operative Checklist Preoperative Checklist Indicated: No Prophylactic Antibiotic Ordered: Yes Home Medications Include Beta Lori: No Beta Lori Taken Today (Day of Surgery): No Beta Lori Taken Yesterday (Day Prior to Surgery): No Is VTE Prophylaxis Indicated?: NO
--- NOTE | 2017-02-21 11:32 | Discharge Summary ---
Outpatient Proc Discharge Plan - Plan Additional Instructions: No heavy lifting greater than 15lbs for two weeks. May remove Band-Aids in two days. May shower in two days. Prescriptions: OxyCODONE/APAP 10/325 [Percocet 10/325 MG] 1 each PO Q6HR PRN #39 tablet PRN Reason: Pain Home Medications: Metformin [Glucophage] 1,000 mg PO BIDWM 02/06/16 [History] Ondansetron HCl [Zofran] 4 mg PO TID PRN #10 tablet 12/22/16 [Rx] Albuterol Sulfate [Albuterol Inhaler] 2 puff IH Q4H PRN 01/10/17 [History] Omeprazole [PriLOSEC] 40 mg PO DAILY 01/10/17 [History] Pioglitazone HCl [Actos] 45 mg PO DAILY 01/10/17 [History] Fluticasone Propionate Nasal [Flonase] 2 spray NS DAILY #1 bottle 01/29/17 [Rx] Ibuprofen [Motrin] 600 mg PO Q6HR PRN #10 tab 01/29/17 [Rx] Lisinopril [Zestril] 5 mg PO DAILY 01/29/17 [History] Lovastatin [Lovastatin] 40 mg PO DAILY 01/29/17 [History] Naproxen [Naprosyn] 500 mg PO BID PRN 01/29/17 [History] SitaGLIPtin [Januvia] 100 mg PO DAILY 01/29/17 [History] Sumatriptan Succ/Naproxen Sod [Treximet 85-500 mg Tablet] 1 each PO DAILY PRN [History] Tizanidine HCl 4 mg PO HS PRN 01/29/17 [History] Leuprolide Acetate [Lupron Depot] 3.75 mg IJ Q6M 02/14/17 [History] Metoclopramide [Reglan] 10 mg PO DAILY PRN 02/14/17 [History] Norethindrone Acetate 5 mg PO DAILY 02/14/17 [History] Sucralfate [Carafate] 1 gm PO QID 02/14/17 [History] OxyCODONE/APAP 10/325 [Percocet 10/325 MG] 1 each PO Q6HR PRN #39 tablet [Rx]
[2017-02-21] MEDS ORDERED: *HR* OxyCODONE/APAP 10/325 TABLET PO ONE (12:29)
--- NOTE | 2017-02-21 12:29 | Operative Note ---
Date of procedure: 02/21/17 Pre-op diagnosis: Biliary dyskinesia Post-op diagnosis: same Procedure: Laparoscopic cholecystectomy Anesthesia: NAMAN Surgeon: Jhony Scott Pecan Grower: Serina Guerra Specimen: gallbladder Condition: stable Disposition: PACU Procedure in Detail: Date of surgery: 02/21/17 After properly identifying the patient, the patient was brought to the operating room and placed in a supine position. After proper IV sedation was achieved followed by general endotracheal intubation, the patient's abdomen was prepped and draped in a normal sterile fashion. A timeout was performed noting the patient's name and type of procedure to be performed. A supraumbilical incision with an 11 blade scalpel was made down to the level of the rectus fascia and the rectus fascia was incised followed by placement of a 12 mm port through the incision. The abdomen was insufflated with carbon dioxide and a laparoscopic camera was placed through the port which showed no injury to the intra-abdominal organs upon entry. A subxiphoid 5 mm port and a right subcostal margin 5 mm port were placed under direct camera visualization. The patient was placed in a reverse Trendelenburg position. The right upper quadrant was the examined and the gallbladder was identified and grasped with a nontraumatic grasper and retracted superiorly/anteriorly. The cystic duct was dissected away from the surrounding tissue, clipped with laparoscopic clips, and incised with laparoscopic scissors. The cystic artery was then also identified, clipped with laparoscopic clips, then incised with laparoscopic scissors. The gallbladder was carefully dissected away from the gallbladder fossa with Bovie cauterization while bovie cauterization was used to maintain hemostasis. Once the gallbladder was dissected free it was removed from the abdomen via an Endobag. Reinspection of the right upper quadrant demonstrated maintenance of hemostasis and the right upper quadrant was briefly irrigated with normal saline solution. All ports were then removed from the abdomen after the abdomen was desufflated. The supraumbilical incision was closed by reapproximating the fascia using an 0 Vicryl suture in a [id number] fashion. The subcutaneous tissue was reapproximated with interrupted 3-0 Vicryl sutures and the epidermal and dermal layers for the remaining incisions were closed with 4-0 Monocryl sutures. Needle, sponge, and instrument counts were correct 2 and the incisions were covered with Steri-Strips and Band-Aids. The patient was aroused from IV sedation, extubated in the operating room without complication, and transported to the recovery room in stable condition.
[2017-02-21] MEDS ORDERED: *HR* HYDROmorphone (PF) 1 MG/ML SYRINGE ONE (12:41)
[2017-02-21] MEDS ORDERED: *HR* Morphine 2 MG/ML SYRINGE ONE (15:12)
[2017-02-21] MEDS ORDERED: *HR* Morphine 2 MG/ML SYRINGE IVP ONE (15:13)
--- NOTE | 2017-02-21 18:23 | Anesthesia Evaluation Post Op ---
Date of Encounter: 02/21/17 Time of Encounter: 18:20 - Vital Signs Vital Signs: Vital Signs/O2 Sat, Most Current Temp Pulse Resp BP Pulse Ox 97.4 F L 71 18 132/80 99 02/21/17 13:26 02/21/17 14:26 02/21/17 14:26 02/21/17 14:26 02/21/17 14:26 - Lungs Lungs: Clear Ascult./Percussion - Airway Airway: Non-obstructed - Cardiovascular Regular Rate - Mental Status Mental Status: Alert & Oriented, Answers Appropriately - Pain Pain Scale: 2 Pain Scale used: Numeric (1 - 10) - Nausea Vomiting Nausea Vomiting: Not Present - Hydration Hydration: Tolerates oral liquids, Able to void Notes: 02/21/17 18:19 Patient has had vasovagal response 3 times after/during walking at bedside in [facility]. Vital signs are wnl but patient states the room starts to spin and she then passes out. Dr. Calvillo notified and will admit her to a hospital bed. - Discharge PostOp Status: Transfer Patient to floor
[2017-02-21] MEDS ORDERED: tiZANidine 4 MG TABLET PO PRN (21:06)
[2017-02-21] MEDS ORDERED: D5% in Water 1,000 ML IVC PRN (21:06)
[2017-02-21] MEDS ORDERED: *HR* Dextrose 50 % in Water (Syg) 50 ML SYRINGE IVP PRN (21:06)
[2017-02-21] MEDS ORDERED: Dextrose Gel 15 GM PO PRN ×2 (21:06)
[2017-02-21] MEDS ORDERED: Albuterol 2.5 MG/3 ML NEBULIZER IH PRN (21:06)
[2017-02-21] MEDS: *HR* OxyCODONE/APAP 5/325 TABLET PO PRN (23:07)
[2017-02-21] MEDS: Sucralfate 1 GM TABLET PO SCH (23:08)
[2017-02-21] MEDS: Insulin LISPRO 300 UNITS/3 ML VIAL SQ SCH (23:27)
[2017-02-22] MEDS ORDERED: Ondansetron 4 MG/2 ML VIAL IVP SCH
[2017-02-22] MEDS: *HR* OxyCODONE/APAP 5/325 TABLET PO PRN ×3 (05:21→18:06)
[2017-02-22] MEDS: *HR* Metformin 500 MG TABLET PO SCH ×2 (10:35→18:06)
[2017-02-22] MEDS: Sucralfate 1 GM TABLET PO SCH ×4 (10:36→21:38)
[2017-02-22] MEDS: *HR* SitaGLIPtin 100 MG TABLET PO SCH (10:36)
[2017-02-22] MEDS: Insulin LISPRO 300 UNITS/3 ML VIAL SQ SCH ×4 (10:44→20:52)
[2017-02-22] MEDS: *HR* Pioglitazone 45 MG TABLET PO SCH (10:45)
[2017-02-22] MEDS: Ondansetron 4 MG/2 ML VIAL IVP PRN ×2 (11:20→21:48)
--- NOTE | 2017-02-22 11:48 | Discharge Summary ---
Date of Encounter: 02/22/17 Time of Encounter: 11:46 - Discharge Diagnosis (1) Biliary dyskinesia Priority: Primary Status: Resolved Comments: POD #[address] 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) use of insulin - Discharge Medications Prescriptions: Ondansetron ODT [Zofran ODT] 4 mg SL Q6HR PRN #30 tab.rapdis PRN Reason: Nausea OxyCODONE/APAP 5/325 [Percocet 5/325 MG] 1 each PO Q6HR PRN #30 tablet PRN Reason: Mild Pain Docusate [Colace] 100 mg PO BID #30 capsule Home Medications: Metformin [Glucophage] 1,000 mg PO BIDWM 02/06/16 [History] Ondansetron HCl [Zofran] 4 mg PO TID PRN #10 tablet 12/22/16 [Rx] Albuterol Sulfate [Albuterol Inhaler] 2 puff IH Q4H PRN 01/10/17 [History] Omeprazole [PriLOSEC] 40 mg PO DAILY 01/10/17 [History] Pioglitazone HCl [Actos] 45 mg PO DAILY 01/10/17 [History] Fluticasone Propionate Nasal [Flonase] 2 spray NS DAILY #1 bottle 01/29/17 [Rx] Ibuprofen [Motrin] 600 mg PO Q6HR PRN #10 tab 01/29/17 [Rx] Lisinopril [Zestril] 5 mg PO DAILY 01/29/17 [History] Lovastatin [Lovastatin] 40 mg PO DAILY 01/29/17 [History] Naproxen [Naprosyn] 500 mg PO BID PRN 01/29/17 [History] SitaGLIPtin [Januvia] 100 mg PO DAILY 01/29/17 [History] Sumatriptan Succ/Naproxen Sod [Treximet 85-500 mg Tablet] 1 each PO DAILY PRN [History] Tizanidine HCl 4 mg PO HS PRN 01/29/17 [History] Leuprolide Acetate [Lupron Depot] 3.75 mg IJ Q6M 02/14/17 [History] Metoclopramide [Reglan] 10 mg PO DAILY PRN 02/14/17 [History] Norethindrone Acetate 5 mg PO DAILY 02/14/17 [History] Sucralfate [Carafate] 1 gm PO QID 02/14/17 [History] Docusate [Colace] 100 mg PO BID #30 capsule 02/22/17 [Rx] Ondansetron ODT [Zofran ODT] 4 mg SL Q6HR PRN #30 tab.rapdis 02/22/17 [Rx] OxyCODONE/APAP 5/325 [Percocet 5/325 MG] 1 each PO Q6HR PRN #30 tablet 02/22/17 [Rx] Allergies/Adverse Reactions: Allergies cefuroxime [From Ceftin] Allergy (Verified 02/21/17 11:03) Rash darifenacin [From Enablex] Allergy (Verified 02/21/17 11:03) See Comments Raised BP Penicillins Allergy (Verified 02/21/17 11:03) Rash Sulfa (Sulfonamide Antibiotics) Allergy (Verified 02/21/17 11:03) Rash sulfamethoxazole [From Bactrim] Allergy (Verified 02/21/17 11:03) Rash trimethoprim [From Bactrim] Allergy (Verified 02/21/17 11:03) Rash metformin Adverse Reaction (Verified 02/21/17 11:03) Vomiting General Surgery Exam Initial Vital Signs Temp Pulse Resp BP Pulse Ox 97.8 F 101 18 121/78 98 02/21/17 10:00 02/21/17 10:00 02/21/17 10:00 02/21/17 10:00 02/21/17 10:00 - General physical appearance well developed, well nourished, no distress - Eyes normal ocular movement - ENT normal mucosa, atraumatic, normocephalic - Neck trachea midline - Respiratory normal respiratory effort, clear to auscultation - Cardiovascular Cardiovascular exam: Present: RRR, 15, 16 - Abdomen Abdomen general surgery: Present: bowel sounds present, soft, tender (Expected postoperative tenderness) - Incision Incision: Present: clean and dry, intact - Integumentary Integumentary general surgery: Present: warm and dry - Neurologic Present: CN 2-12 grossly intact - Musculoskeletal Present: normal gait, normal posture - Psychiatric Psychiatric general surgery: Present: appropriate, oriented to person, oriented to place, oriented to time, speech is normal, memory intact Date of admission: 02/21/17 Primary care physician: Ronen Taylor DO Discharging clinician: Jhony Scott (Osmani Alva) Anticipated date of discharge: 02/22/17 - Patient Status Disposition: Home, Self-Care Condition: Good Functional capacity at discharge: independent ambulation Overall status at discharge: patient is progressing back to baseline - Discharge Instructions Instructions: Laparoscopic Cholecystectomy (DC) Follow Up With: Karolina Avla CNP [Advanced Practice Nurse] - 03/09/17 9:00 am Ronen Taylor DO [Primary Care Provider] - Forms: Work/School Release Additional Instructions: #1 wash incisions with soap and water and pat dry daily #2 no lifting, pushing, pulling more than 15 pounds for the next 2 weeks #3 no driving until off narcotics for 24 hours and able to safely react in the car #4 may climb stairs No heavy lifting greater than 15lbs for two weeks. May remove Band-Aids in two days. May shower in two days. Home Medication List * You have been given a list of your current medications. If you have changes in your medications, update your list. * Provide a list of current medications to your primary care physician. * Carry a copy of your current medications with you in case of an emergency. - Diet and Activity Activity: other (See additional instructions above) Diet: advance to your usual diet - Hospital Course Hospital course: Ms. Turner is a 41 year old female who is postop day #1 from a laparoscopic cholecystectomy with Dr. Scott. She did experience postoperative dizziness and was kept in the hospital for observation. She is tolerating a diet without nausea or vomiting. Her vital signs are stable and she is afebrile. She is hypertensive and this has improved with resuming her home medication regimen of lisinopril. She is ambulating and voiding without difficulty. She states that her dizziness has significantly improved. Her pain is well-controlled. We will begin discharge planning and plan for outpatient follow-up in the next 10- 14 days. - Time Spent with Patient Total time spent providing and/or coordinating discharge services: Less than 30 minutes Labs on day of discharge: Labs from last 24 hours 02/22/17 02/22/17 02/21/17 11:21 07:24 20:31 POC Glucose 265 H 213 H 170 H 02/21/17 02/21/17 02/21/17 15:55 12:39 09:58 POC Glucose 140 H 124 H 113 H - Attending Attestation I examined this patient and my medical decision-making was reviewed with the TMD TEACHER ASSISTANT/PA/Advanced Practice Nurse/Resident Physician. I agree with the documented findings, disposition and treatment plan as described except to the extent set forth below.
[2017-02-22 16:07] LABS: Basophils % 0.3 %; Eosinophils % 0.2 %; Hematocrit 38.5 % (35.3-44.9); Immature Granulocytes % 0.5 % (0-4); Lymphocytes # 2.6 K/mcL (0.6-4.6); Mean Corpuscular HGB Conc 31.2 g/dL (31.6-35.5); Mean Corpuscular Hemoglobin 25.2 pg (28.0-33.3); Mean Corpuscular Volume 80.9 fL (83.0-100.0); Mean Platelet Volume 9.4 fL (9.4-12.4); Monocytes # 1.1 K/mcL (0.0-1.3); Monocytes % 9.8 %; Platelet Count 406 K/mcL (140-400); Red Blood Count 4.76 M/mcL (3.82-4.97); Red Cell Distribution Width 14.2 % (11.5-14.5); Segmented Neutrophils % 65.2 %
[2017-02-22 16:27] LABS: BUN/Creatinine Ratio 7 (6-26); Blood Urea Nitrogen 7 mg/dL (7-20); Calcium 9.4 mg/dL (8.6-10.8); Carbon Dioxide 23 mEq/L (19-29); Chloride 108 mEq/L (98-109); Glucose 137 mg/dL (70-99); Osmolality,Calculated 290 (280-300); Sodium 140 mEq/L (136-145); eGFR For African Americans > 60 (> 60); eGFR For Non-African Americans > 60 (> 60)
--- NOTE | 2017-02-22 16:46 | Internal Medicine Consult Note ---
<Charlie Bowmancresencio Mathis - Last Filed: 02/22/17 17:23> Date of Encounter: 02/22/17 Time of Encounter: 16:30 - Assessment and Plan (1) Dizziness, nonspecific Current Visit: Yes Status: Acute Assessment and plan: post-operatively and with ambulation. Patient reports syncopal episode with first ambulation post-op. Staff not able to verify. Possibly secondary to anaesthesia, pain medicine. Pain medicine de-escalated to PO only. Check orthostatics, Echo. CTA chest if she becomes tachycardic, hypoxic (2) High blood pressure Current Visit: Yes Status: Acute Assessment and plan: BP elevated post-op. No formal dx HTN. On ALFONSO for renal protection with diabetes. Monitor BP and increase ALFONSO or add another agent if BP remains elevated Qualifiers: Qualified Code(s): I10 - Essential (primary) hypertension (3) Biliary dyskinesia Current Visit: Yes Status: Resolved Assessment and plan: s/p cholecystectomy 02/22/2017. Post-op per Primary (4) Diabetes mellitus Current Visit: No Status: Chronic Assessment and plan: per hx. Blood sugars variable while inpatient. Cont home diabetes regimen. Monitor blood sugar and titrate PRN Qualifiers: Diabetes mellitus type: type 2 Diabetes mellitus complication status: with hyperglycemia Diabetes mellitus black leather trimmer insulin use: with black leather trimmer use Qualified Code(s): E11.65 - Type 2 diabetes mellitus with hyperglycemia; Z79.4 - mold chipper (current) use of insulin (5) DVT prophylaxis Current Visit: No Status: Acute Assessment and plan: Sub-q heprin Internal Medicine - CN: HPI - Data of Consult Requesting Physician: Jhony Scott MD - Consult Narrative Reason for consult: HTN and lightheaded ness, dizziness History of present illness: Ms. Turner is a 41 year old female with PMH hyperlipidemia and diabetes who presented to [facility] on 02/22/[facility] for planned cholecystectomy. Post-op she became hypertensive with a reported syncopal episode. Ta was consulted for Medical Management. Information obtained from chart review and patient report. Patient reports getting lightheaded and dizzy when she ambulates. Says she passed out yesterday and reports "almost passing out" today when she has been up walking. She has not had this happen before. Says she feels fine when laying down. No identifying triggers. Her only complaint on my exam is incisional ABD pain. She denies CP, no SOB, no vision changes, no palpitations. Says she has been eating and drinking Past Med Surg Social Fam HX - Past Medical History Medical history: diabetes, GERD, hyperlipidemia, kidney stones, liver disease Psychiatric history: no psych history - Past Surgical History Surgical History: , cholecystectomy - Social History Smoking Status: Never smoker Smokeless Tobacco Status: No Alcohol use: none Drug use: none - Family History Father History Unknown: Yes Adopted: Yes Name: Rocael Lilly Age: 62 Family Member Ethnicity: Non- Living Status: Still Living Hx Family Cardiac Disorders: Yes (HTN) Hx Family Respiratory Disorders: Yes (COPD) Hx Family Cancer: Yes (Kidney, prostate) Hx Family GI Disorders: Yes (GERD) Hx Family Genitourinary Disorders: No Hx Family Endocrine Disorder: Yes (DM 2) Hx Family Musculoskeletal Disorders: No Hx Family Neuromuscular Disorders: No Hx Family Neurologic Disorders: No Hx Family HEENT Disorders: No Hx Family Autoimmune Disorders: No Hx Family Reproductive Disorders: No Hx Family Psychosocial Disorders: No Hx Family Medical Disorders: No Mother Name: Zelda Lilly Age: 60 Family Member Ethnicity: Non- Living Status: Still Living Hx Family Cardiac Disorders: No Hx Family Respiratory Disorders: No Hx Family Cancer: No Hx Family GI Disorders: No Hx Family Genitourinary Disorders: No Hx Family Endocrine Disorder: Yes (Thyroid) Hx Family Neurologic Disorders: Yes (Migranes) Maternal Grandfather Name: Barbie Zurita Age: 81 Family Member Ethnicity: Non- Living Status: Still Living Hx Family Cardiac Disorders: Yes (CHF) Hx Family Respiratory Disorders: Yes (COPD) Hx Family Cancer: Yes (Skin) Hx Family GI Disorders: Yes (Hernia) Hx Family Endocrine Disorder: No Hx Family Neuromuscular Disorders: No Hx Family Neurologic Disorders: No Hx Family HEENT Disorders: No Hx Family Autoimmune Disorders: No Maternal Grandmother Living Status: Still Living Hx Family Cardiac Disorders: Yes (CHF) Hx Family Respiratory Disorders: No Hx Family Cancer: Yes (Skin) Hx Family GI Disorders: No Hx Family Endocrine Disorder: Yes (DM) Hx Family Neuromuscular Disorders: No Hx Family Neurologic Disorders: No Hx Family HEENT Disorders: No Hx Family Autoimmune Disorders: No - Constitutional Constitutional: no anorexia, no chills, no lethargy, no weakness - EENT Eyes: no blurry vision, no change in vision - Cardiovascular Cardiovascular ROS IM: lightheadedness, syncope, no chest pain, no dyspnea - Respiratory Respiratory: no cough, no dyspnea, no dyspnea on exertion - Gastrointestinal Gastrointestinal: as per HPI, abdominal pain - Musculoskeletal Musculoskeletal ROS IM: no neck pain, no numbness, no stiffness, no tingling - Integumentary Integumentary IM: no rash, no skin ulcer, no sores - Neurological Neurological ROS: dizziness, no abnormal gait, no abnormal movements, no behavioral changes, no confusion, no convulsions, no focal weakness, no numbness , no paresthesias, no tingling, no weakness - Psychiatric Psychiatric: no anxiety, no confusion - Endocrine Endocrine IM: polyuria, no cold intolerance, no heat intolerance Internal Medicine - CN: Meds Metformin [Glucophage] 1,000 mg PO BIDWM 02/06/16 [History] Ondansetron HCl [Zofran] 4 mg PO TID PRN #10 tablet 12/22/16 [Rx] Albuterol Sulfate [Albuterol Inhaler] 2 puff IH Q4H PRN 01/10/17 [History] Omeprazole [PriLOSEC] 40 mg PO DAILY 01/10/17 [History] Pioglitazone HCl [Actos] 45 mg PO DAILY 01/10/17 [History] Fluticasone Propionate Nasal [Flonase] 2 spray NS DAILY #1 bottle 01/29/17 [Rx] Ibuprofen [Motrin] 600 mg PO Q6HR PRN #10 tab 01/29/17 [Rx] Lisinopril [Zestril] 5 mg PO DAILY 01/29/17 [History] Lovastatin [Lovastatin] 40 mg PO DAILY 01/29/17 [History] Naproxen [Naprosyn] 500 mg PO BID PRN 01/29/17 [History] SitaGLIPtin [Januvia] 100 mg PO DAILY 01/29/17 [History] Sumatriptan Succ/Naproxen Sod [Treximet 85-500 mg Tablet] 1 each PO DAILY PRN [History] Tizanidine HCl 4 mg PO HS PRN 01/29/17 [History] Leuprolide Acetate [Lupron Depot] 3.75 mg IJ Q6M 02/14/17 [History] Metoclopramide [Reglan] 10 mg PO DAILY PRN 02/14/17 [History] Norethindrone Acetate 5 mg PO DAILY 02/14/17 [History] Sucralfate [Carafate] 1 gm PO QID 02/14/17 [History] Docusate [Colace] 100 mg PO BID #30 capsule 02/22/17 [Rx] Ondansetron ODT [Zofran ODT] 4 mg SL Q6HR PRN #30 tab.rapdis 02/22/17 [Rx] OxyCODONE/APAP 5/325 [Percocet 5/325 MG] 1 each PO Q6HR PRN #30 tablet 02/22/17 [Rx] Allergies cefuroxime [From Ceftin] Allergy (Verified 02/21/17 11:03) Rash darifenacin [From Enablex] Allergy (Verified 02/21/17 11:03) See Comments Raised BP Penicillins Allergy (Verified 02/21/17 11:03) Rash Sulfa (Sulfonamide Antibiotics) Allergy (Verified 02/21/17 11:03) Rash sulfamethoxazole [From Bactrim] Allergy (Verified 02/21/17 11:03) Rash trimethoprim [From Bactrim] Allergy (Verified 02/21/17 11:03) Rash metformin Adverse Reaction (Verified 02/21/17 11:03) Vomiting Internal Medicine - CN: Exam - Constitutional Vitals: Temp Pulse Resp BP Pulse Ox 97.5 F L 70 16 150/89 98 02/22/17 11:19 02/22/17 11:19 02/22/17 11:19 02/22/17 11:19 02/22/17 11:19 General appearance IM: Present: A&O X 3, answers questions appropriately - Head Head exam: Present: atraumatic - Eye Pupils: Present: normal accommodation, PERRL - ENT ENT exam: Present: mucous membranes moist, normal exam, normal external ear exam - Neck Neck exam general surgery: Present: full ROM - Respiratory Respiratory exam: Present: CTAB - Cardiovascular Cardiovascular exam IM: Present: RRR - GI/Abdominal GI/Abdominal exam IM: Present: normal bowel sounds, tenderness - Rectal Rectal exam: Present: deferred - Expanded Exam Female exam: Present: deferred - Back Exam Back exam: Present: full ROM - Neurological Exam Neurological exam: Present: alert, CN II-XII intact, oriented X3, strengths equal and symetr throughout - Psychiatric Psychiatric exam: Present: normal affect - Other Additional findings: ABD [facility] Internal Medicine - CN: Reslt - Labs CBC & Chem 7: 02/22/17 15:54 02/22/17 15:54 Labs: Short CBC 02/22/17 Range/Units 15:54 WBC 10.8 (4.3-11.1) K/mcL Hgb 12.0 (11.5-15.4) g/dL Hct 38.5 (35.3-44.9) % Plt Count 406 H (140-400) K/mcL Neutrophils # 7.0 (1.6-8.9) K/mcL Consult Discharge Plan - Plan Instructions: Laparoscopic Cholecystectomy (DC) Additional Instructions: #1 wash incisions with soap and water and pat dry daily #2 no lifting, pushing, pulling more than 15 pounds for the next 2 weeks #3 no driving until off narcotics for 24 hours and able to safely react in the car #4 may climb stairs No heavy lifting greater than 15lbs for two weeks. May remove Band-Aids in two days. May shower in two days. Home Medication List * You have been given a list of your current medications. If you have changes in your medications, update your list. * Provide a list of current medications to your primary care physician. * Carry a copy of your current medications with you in case of an emergency. Referrals: Karolina Alva CNP [Advanced Practice Nurse] - 03/09/17 9:00 am Ronen Taylor DO [Primary Care Provider] - Prescriptions: Ondansetron ODT [Zofran ODT] 4 mg SL Q6HR PRN #30 tab.rapdis PRN Reason: Nausea OxyCODONE/APAP 5/325 [Percocet 5/325 MG] 1 each PO Q6HR PRN #30 tablet PRN Reason: Mild Pain Docusate [Colace] 100 mg PO BID #30 capsule <Ernesto Huddleston - Last Filed: 02/22/17 17:57> Date of Encounter: 02/22/17 Time of Encounter: 17:45 Internal Medicine - CN: HPI - Data of Consult Requesting Physician: Jhony Scott MD - Consult Narrative History of present illness: Ms. Turner is a 41 year old female Internal Medicine - CN: Exam - Constitutional Vitals: Temp Pulse Resp BP Pulse Ox 97.5 F L 70 16 150/89 98 02/22/17 11:19 02/22/17 11:19 02/22/17 11:19 02/22/17 11:19 02/22/17 11:19 Internal Medicine - CN: Reslt - Labs CBC & Chem 7: 02/22/17 15:54 02/22/17 15:54 Labs: Short CBC 02/22/17 Range/Units 15:54 WBC 10.8 (4.3-11.1) K/mcL Hgb 12.0 (11.5-15.4) g/dL Hct 38.5 (35.3-44.9) % Plt Count 406 H (140-400) K/mcL Neutrophils # 7.0 (1.6-8.9) K/mcL BMP 02/22/17 15:54 Sodium 140 Potassium 4.0 Chloride 108 Carbon Dioxide 23 BUN 7 Creatinine 0.95 Glucose 137 H Calcium 9.4 - Attending Attestation I examined this patient and my medical decision-making was reviewed with the nurse practitioner. I agree with the documented history of present illness, review of systems, past medical, surgical social and family histories and examination findings, disposition and treatment plan as described above except to any changes set forth below. 41-year-old female patient admitted for laparoscopic cholecystectomy. Underlying history of diabetes mellitus type 2. Has been having episodes of dizziness since after surgery due to uncontrolled blood pressure. No past medical history of hypertension. Patient takes lisinopril for renal protection. Dizziness occurs only when the patient is walking. No chest pain. Does have shortness of breath with ambulation. He reports an episode of syncope yesterday. Has not had any further episodes since then. Has been receiving IV fluids with good urine output. On examination no pedal edema Heart sounds and lung sounds are within normal limits. Tenderness in right upper quadrant surgical site. Dizziness and lightheadedness associated with shortness of breath: We will get chest x-ray. Place patient on telemetry. Monitor vital signs and blood pressure closely. 2-D echocardiogram. Elevated blood pressure: No previous diagnosis of hypertension. Will monitor blood pressure closely. For now we will hold off on starting oral antihypertensives. If blood pressure persistently greater than 160, will use IV hydralazine as needed. This document has been at least partially created by [employer] recognition technology by Dr. Huddleston. Errors in grammar, wording or other phrases may exist. If errors are found after the documentation is signed, they will be addressed individually in the addendum section of this document when appropriate.
--- NOTE | 2017-02-22 17:55 | Event Note ---
Date of Encounter: 02/22/17 Time of Encounter: 17:54 Noted patient had improvement in her dizziness with ambulation, however at 3 PM she had worsening symptoms of dizziness and shortness of breath after ambulating. Because of her persistent symptoms of dizziness and the symptoms of shortness of breath the hospitalist have been consulted. Appreciate their consultation. Chest x-ray and echo are pending. BMP and CBC are within normal limits. Will await results of the above studies.
--- NOTE | 2017-02-22 18:20 | Electrocardiograph Report ---
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
[2017-02-22] MEDS ORDERED: Ibuprofen 400 MG TABLET PO PRN (21:09)
[2017-02-22] MEDS: *HR* Heparin 5,000 UNIT/ML VIAL SQ SCH (21:38)
[2017-02-23] MEDS: *HR* OxyCODONE/APAP 5/325 TABLET PO PRN ×4 (00:16→17:36)
[2017-02-23] MEDS: *HR* Heparin 5,000 UNIT/ML VIAL SQ SCH ×2 (06:18→12:38)
[2017-02-23] MEDS: Ondansetron 4 MG/2 ML VIAL IVP PRN (07:30)
[2017-02-23] MEDS: *HR* Pioglitazone 45 MG TABLET PO SCH (07:31)
[2017-02-23] MEDS: *HR* Metformin 500 MG TABLET PO SCH ×2 (07:31→17:36)
[2017-02-23] MEDS: Sucralfate 1 GM TABLET PO SCH ×3 (07:31→17:36)
[2017-02-23] MEDS: *HR* SitaGLIPtin 100 MG TABLET PO SCH (07:32)
[2017-02-23] MEDS: Insulin LISPRO 300 UNITS/3 ML VIAL SQ SCH ×3 (08:02→17:33)
--- NOTE | 2017-02-23 09:49 | ECHO - Doppler Report ---
Echocardiogram Name: Fiordaliza Turner Date of Study: 02/23/2017 Date: 1975 Ht: 63.0 in Medical Record#: [id number] Age: 41 Wt: 212.0 lb Gender: Female BSA: 1.98 Order #: [id number] Location: [facility] Room #: 3A44 Reading Physician: Esha Ervin DO Receiving Teller: Kaleb Dwyer RN Ordering Physician: Joann Bowman CNP Primary Physician: Ronen Taylor DO Indications: Syncope Impressions: LVEF 65%. Normal left ventricular size and systolic function. Normal diastolic function of the left ventricle. Normal right ventricular size and function. No significant valvular dysfunction. No pulmonary hypertension. Left Ventricular Wall Motion: Rest Echo Findings All wall segments showed normal motion. Findings: Study Quality * Technically adequate exam. ECG Findings * Normal sinus rhythm. Left Ventricle * Normal LV chamber size, wall thickness and function. * Normal left ventricular diastolic function. * LVEF 65%. Left Atrium * Normal left atrial size. Mitral Valve * Normal mitral valve structure. * No mitral stenosis. * Trace mitral regurgitation. Aortic Valve * No aortic regurgitation. * Trileaflet aortic valve. * Normal aortic valve structure. * No aortic stenosis. Tricuspid Valve * Tricuspid valve not well visualized. * Trace tricuspid regurgitation. * Estimated RA pressure is 3 mmHg. * Estimated RVSP is 21 mmHg. * No pulmonary hypertension. Pulmonic Valve * Pulmonic valve is not well visualized. * No pulmonic stenosis. * No pulmonic regurgitation. Pulmonary Artery * Pulmonary artery not well visualized. Right Ventricle * Normal right ventricular structure and function. Right Atrium * Normal right atrial size. Interatrial Septum * No evidence of PFO by color Doppler. Pericardium * There is no pericardial effusion present. IVC * Normal IVC dimensions and inspiratory collapse. Aorta * Suboptimally visualized. History Diabetes Hypercholesteremia 05/13/1999 a Previous Echo was performed. Measurements: BP: 139/ 88 2D Normal Values RVIDd: 3.00 cm <2.7 cm IVSd: 1.00 cm 0.6 - 1.0 cm LVIDd: 3.70 cm 3.7 - 5.6 cm LVPWd: 1.00 cm 0.6 - 1.1 cm LVIDs: 2.20 cm 1.5 - 3.6 cm LA: 3.10 cm 2.0 - 4.0cm %FS: 40.50 cm >25 % LVOT Diam: 1.80 cm LA volume: 58 Mitral Valve Peak E:.99 m/sec Peak A:.79 m/sec E/A Ratio:1.3 Peak E' Lat Kristian:13 cm/s Peak E' Med Kristian:9.36 cm/s E/E' Lat Ratio:7.6 E/E' Med Ratio:10.6 Tricuspid Valve TV Regurg Peak Grad: 18.00mmHg TV Regurg Peak Kristian: 2.11m/sec Updated by Esha Ervin on 02/23/2017 9:43:02 AM electronically signed on 02/23/2017 9:43:24 AM with status of Final Wall Motion Adams: 1=Normal, 2=Hypokinesis, 3=Akinesis, 4=Dyskinesis, 5=Aneurysmal, 6=Hyperkinetic, X=Not Visualized (Blank)=Missing
--- NOTE | 2017-02-23 15:26 | Discharge Summary ---
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 - Discharge Medications Prescriptions: Lisinopril [Zestril] 10 mg PO DAILY #60 tablet Home Medications: Metformin [Glucophage] 1,000 mg PO BIDWM 02/06/16 [History] Ondansetron HCl [Zofran] 4 mg PO TID PRN #10 tablet 12/22/16 [Rx] Albuterol Sulfate [Albuterol Inhaler] 2 puff IH Q4H PRN 01/10/17 [History] Omeprazole [PriLOSEC] 40 mg PO DAILY 01/10/17 [History] Pioglitazone HCl [Actos] 45 mg PO DAILY 01/10/17 [History] Fluticasone Propionate Nasal [Flonase] 2 spray NS DAILY #1 bottle 01/29/17 [Rx] Ibuprofen [Motrin] 600 mg PO Q6HR PRN #10 tab 01/29/17 [Rx] Lisinopril [Zestril] 5 mg PO DAILY 01/29/17 [History] Lovastatin [Lovastatin] 40 mg PO DAILY 01/29/17 [History] Naproxen [Naprosyn] 500 mg PO BID PRN 01/29/17 [History] SitaGLIPtin [Januvia] 100 mg PO DAILY 01/29/17 [History] Sumatriptan Succ/Naproxen Sod [Treximet 85-500 mg Tablet] 1 tab PO DAILY PRN 12/16 [History] Tizanidine HCl 4 mg PO HS PRN 01/29/17 [History] Leuprolide Acetate [Lupron Depot] 3.75 mg IJ Q6M 02/14/17 [History] Metoclopramide [Reglan] 10 mg PO DAILY PRN 02/14/17 [History] Norethindrone Acetate 5 mg PO DAILY 02/14/17 [History] Sucralfate [Carafate] 1 gm PO QID 02/14/17 [History] Docusate [Colace] 100 mg PO BID #30 capsule 02/22/17 [Rx] Ondansetron ODT [Zofran ODT] 4 mg SL Q6HR PRN #30 tab.rapdis 02/22/17 [Rx] OxyCODONE/APAP 5/325 [Percocet 5/325 MG] 1 each PO Q6HR PRN #30 tablet 02/22/17 [Rx] Lisinopril [Zestril] 10 mg PO DAILY #60 tablet 02/23/17 [Rx] Allergies/Adverse Reactions: Allergies cefuroxime [From Ceftin] Allergy (Verified 02/21/17 11:03) Rash darifenacin [From Enablex] Allergy (Verified 02/21/17 11:03) See Comments Raised BP Penicillins Allergy (Verified 02/21/17 11:03) Rash Sulfa (Sulfonamide Antibiotics) Allergy (Verified 02/21/17 11:03) Rash sulfamethoxazole [From Bactrim] Allergy (Verified 02/21/17 11:03) Rash trimethoprim [From Bactrim] Allergy (Verified 02/21/17 11:03) Rash metformin Adverse Reaction (Verified 02/21/17 11:03) Vomiting General Surgery Exam Initial Vital Signs Temp Pulse Resp BP Pulse Ox 97.8 F 101 18 121/78 98 02/21/17 10:00 02/21/17 10:00 02/21/17 10:00 02/21/17 10:00 02/21/17 10:00 - General physical appearance well developed, well nourished, no distress - Eyes normal ocular movement - ENT normal mucosa, atraumatic, normocephalic - Neck trachea midline - Respiratory normal respiratory effort, clear to auscultation - Cardiovascular Cardiovascular exam: Present: RRR - Abdomen Abdomen general surgery: Present: bowel sounds present, soft, non tender - Incision Incision: Present: clean and dry, intact - Integumentary Integumentary general surgery: Present: warm and dry - Neurologic Present: CN 2-12 grossly intact - Musculoskeletal Present: normal gait, normal posture - Psychiatric Psychiatric general surgery: Present: appropriate, oriented to person, oriented to place, oriented to time, speech is normal, memory intact Date of admission: 02/23/17 10:09 Primary care physician: Ronen Taylor DO Consults: 02/22/17 15:41 Consult to Hospitalist [CONS] Routine Consulting Provider: Hospitalist Ta Reason for Consult: dizziness of unknown etiology, shortness of breath, hypertension Time Notified: 15:42 Call Completed: Yes Discharging clinician: Jhony Scott (Osmani Alva) Anticipated date of discharge: 02/23/17 - Patient Status Disposition: Home, Self-Care Condition: Good Functional capacity at discharge: independent ambulation Overall status at discharge: patient is progressing back to baseline - Discharge Instructions Instructions: Laparoscopic Cholecystectomy (DC) Follow Up With: Karolina Alva CNP [Advanced Practice Nurse] - 03/09/17 9:00 am Ronen Taylor DO [Primary Care Provider] - (1 week hospital follow-up; discuss outpatient stress test) Forms: Work/School Release Additional Instructions: #1 wash incisions with soap and water and pat dry daily #2 no lifting, pushing, pulling more than 15 pounds for the next 2 weeks #3 no driving until off narcotics for 24 hours and able to safely react in the car #4 may climb stairs No heavy lifting greater than 15lbs for two weeks. May remove Band-Aids in two days. May shower in two days. Home Medication List * You have been given a list of your current medications. If you have changes in your medications, update your list. * Provide a list of current medications to your primary care physician. * Carry a copy of your current medications with you in case of an emergency. - Diet and Activity Activity: other (See additional instructions aboe) Diet: advance to your usual diet - Hospital Course Hospital course: Ms. Turner is a 41 year old female who is postop day #1 from a laparoscopic cholecystectomy with Dr. Scott. She did experience postoperative dizziness and was kept in the hospital for observation. On postoperative day #1, she continued to experience episodes of dizziness and hypertension. The hospitalist group has been consulted for evaluation and treatment. She did have a chest x-ray which was normal and an echocardiogram which was normal. On postoperative day #2, she states that she is feeling much better and her dizziness has significantly improved. Her blood pressure has been stable. She is tolerating a diet without nausea or vomiting. Her vital signs are stable and she is afebrile. She is ambulating and voiding without difficulty. Her pain is well-controlled. We will begin discharge planning and plan for outpatient follow-up in the next 10-14 days. - Time Spent with Patient Total time spent providing and/or coordinating discharge services: Less than 30 minutes Labs on day of discharge: Labs from last 24 hours 02/23/17 02/23/17 02/22/17 11:06 07:44 20:25 WBC RBC Hgb Hct MCV MCH MCHC RDW Plt Count MPV Immature Gran % Seg Neutrophils % Lymphocytes % Monocytes % Eosinophils % Basophils % Neutrophils # Lymphocytes # Monocytes # Eosinophils # Basophils # Sodium Potassium Chloride Carbon Dioxide BUN Creatinine Est GFR ( Amer) Est GFR (Non-Af Amer) BUN/Creatinine Ratio Glucose POC Glucose 128 H 108 H 155 H Calculated Osmolality Calcium 02/22/17 02/22/17 02/22/17 16:20 15:54 15:54 WBC 10.8 RBC 4.76 Hgb 12.0 Hct 38.5 MCV 80.9 L MCH 25.2 L MCHC 31.2 L RDW 14.2 Plt Count 406 H MPV 9.4 Immature Gran % 0.5 Seg Neutrophils % 65.2 Lymphocytes % 24.0 Monocytes % 9.8 Eosinophils % 0.2 Basophils % 0.3 Neutrophils # 7.0 Lymphocytes # 2.6 Monocytes # 1.1 Eosinophils # 0.0 Basophils # 0.0 Sodium 140 Potassium 4.0 Chloride 108 Carbon Dioxide 23 BUN 7 Creatinine 0.95 Est GFR ( Amer) > 60 Est GFR (Non-Af Amer) > 60 BUN/Creatinine Ratio 7 Glucose 137 H POC Glucose 120 H Calculated Osmolality 290 Calcium 9.4 - Impressions ITS Impressions Chest X-Ray 02/22/17 17:31 IMPRESSION: No acute cardiopulmonary abnormality. D/ / Jung Hogan MD / Jung Hogan MD Interpreting Provider: Jung Hogan MD
[2017-02-23 15:35] VITALS: BP 144/90
--- NOTE | 2017-02-23 16:59 | Internal Med Progress Note ---
<Harvinder Moreira - Last Filed: 02/23/17 16:56> Date of Encounter: 02/23/17 Time of Encounter: 11:30 - Assessment and plan (1) Dizziness, nonspecific Current Visit: Yes Status: Resolved Assessment and plan: resolvedPatient has had no further episodes of dizziness. This occurred in the post operative period. This was likely secondary to post operative stress/ medications. She is active and cn climb3 flights of steps. CXR was normal. If she has a normal echocardiogram I think it would be reasonable to Discharge her home. If she has recurrent symptoms she should be further evaluated. Would also consider an outpatient stress test. However from a medical stand point she is stable for Discharge at this time. Medicine will sign off. Please call if we can be of further assistance. I discussed with the surgical team. Thank you for the consultation. (2) High blood pressure Current Visit: Yes Status: Acute Assessment and plan: may consider giving a script for 10mg of lisinopril. Alternatively could add a thiazide. would recommend the patient monitor her blood pressure at home and if systolic BP is consistently > 140 she should take the higher dose of lisinopril or add the thiazide. Recommend she keep a record of her Blood pressures and bring to her follow up appointment with her PCP Avoid excessive salt intake. Limit diet to 2G per day. 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 - Subjective Interval history: No major events overnight. Patient states that she is feeling better. She still has some fatigue but denies any syncope, presyncope, chest pain, dyspnea, or dizziness. She denies any new aches or pains. Her post operative pain is well controlled. she denies any further complaints or concerns at this time. - Constitutional Vitals: Temp Pulse Resp BP Pulse Ox 97.5 F L 92 18 144/90 96 02/23/17 15:32 02/23/17 15:32 02/23/17 15:32 02/23/17 15:32 02/23/17 15:32 General appearance: Present: A&O X 3, answers questions appropriately - Head Head exam: Present: atraumatic, normocephalic - Eye Eye exam: Present: PERRL, conjuntiva pink, sclera anicteric Pupils: Present: PERRL - Neck Neck exam general surgery: Present: supple, trachea midline. Absent: lymphadenopathy - Respiratory Respiratory exam: Present: CTAB. Absent: accessory muscle use, rales, rhonchi, wheezes - Cardiovascular Cardiovascular exam: Present: RRR, +S1, +S2. Absent: diastolic murmur, gallop, rubs, systolic murmur - GI/Abdominal GI/Abdominal exam: Present: normal bowel sounds, soft, no peritoneal signs. Absent: distended, tenderness Additional comments: incision site C/D/I - Extremities Exam Extremities exam: Present: warm, radial pulses palpable and symetrical. Absent : calf tenderness, cyanotic, pedal edema - Neurological Exam Neurological exam: Present: CN II-XII intact, oriented X3, no focal deficits. Absent: pronater drift, facial droop, speech deficit - Skin Skin exam: Present: dry, intact Internal Medicine: Result - Labs CBC & Chem 7: 02/22/17 15:54 02/22/17 15:54 - Impressions Impressions Chest X-Ray 02/22/17 17:31 IMPRESSION: No acute cardiopulmonary abnormality. D/ / Jung Hogan MD / Jung Hogan MD Interpreting Provider: Jung Hogan MD Consult Discharge Plan - Plan Instructions: Lisinopril (By mouth), Laparoscopic Cholecystectomy (DC), Acute Nausea and Vomiting (DC), Hypertension (DC) Additional Instructions: #1 wash incisions with soap and water and pat dry daily #2 no lifting, pushing, pulling more than 15 pounds for the next 2 weeks #3 no driving until off narcotics for 24 hours and able to safely react in the car #4 may climb stairs No heavy lifting greater than 15lbs for two weeks. May remove Band-Aids in two days. May shower in two days. Home Medication List * You have been given a list of your current medications. If you have changes in your medications, update your list. * Provide a list of current medications to your primary care physician. * Carry a copy of your current medications with you in case of an emergency. Referrals: Karolina Alva CNP [Advanced Practice Nurse] - 03/09/17 9:00 am Ronen Taylor DO [Primary Care Provider] - 03/01/17 11:30 am (1 week hospital follow-up; discuss outpatient stress test) Prescriptions: Lisinopril [Zestril] 10 mg PO DAILY #60 tablet <Jonas Patel - Last Filed: 02/23/17 17:58> Date of Encounter: 02/23/17 - Constitutional Vitals: Temp Pulse Resp BP Pulse Ox 97.5 F L 92 18 144/90 96 02/23/17 15:32 02/23/17 15:32 02/23/17 15:32 02/23/17 15:32 02/23/17 15:32 Internal Medicine: Result - Labs CBC & Chem 7: 02/22/17 15:54 02/22/17 15:54 - Impressions Impressions Chest X-Ray 02/22/17 17:31 IMPRESSION: No acute cardiopulmonary abnormality. D/ / Jung Hogan MD / Jung Hogan MD Interpreting Provider: Jung Hogan MD - Attending Attestation I examined this patient and my medical decision-making was reviewed with Dr. Moreira, Resident Physician. I agree with the documented findings, disposition and treatment plan as described except to the extent set forth below. The patient reports that her dizziness has resolved. Her echocardiogram was without any abnormal findings. She is currently in no acute distress, heart is regular S1-S2 with no murmurs. She is currently medically cleared for discharge home.
== END 2017-02-23 18:09 | disposition home or self-care (01) ==
LOC: SAMDAY 09:41 → 3ANU 09:41
PROVIDERS: ADMIT Surgery; ATTEND Surgery

== ENCOUNTER 2020-04-16 08:44 | Inpatient (IN) ==
[~2020-04-16 08:44] MED LIST: Acetaminophen IV 1,000 MG/100 ML INFUS..BTL IVPB ONE; Famotidine 20 MG/2 ML VIAL IVP ONE; Gabapentin 300 MG CAPSULE PO ONE
[2020-04-16] MEDS ORDERED: Clindamycin 900 MG/50 ML 900 MG/50 ML IV.SOLN IVPB ONE (09:06)
[2020-04-16] MEDS ORDERED: Ringers Solution, Lactated 1,000 ML IVC SCH (09:15)
[2020-04-16] MEDS ORDERED: *HR* Belladonna Alkaloids/Opium 30 MG RECTAL SUPPOSITORY RC ONE (09:18)
[2020-04-16] MEDS ORDERED: *HR* Promethazine 25 MG/ML VIAL IVP PRN (09:23)
[2020-04-16] MEDS ORDERED: Ondansetron 4 MG/2 ML VIAL IVP ONE (09:23)
[2020-04-16] MEDS ORDERED: *HR* OxyCODONE Immed Rel 5 MG TABLET PO PRN (09:23)
[2020-04-16] MEDS ORDERED: *HR* Labetalol 20 MG/4 ML SYRINGE IVP PRN (09:23)
[2020-04-16] MEDS ORDERED: Bupivacaine/EPI 1:200k 0.5%PF 10 ML VIAL ONE (09:55)
[2020-04-16] MEDS ORDERED: *HR* Morphine Sulfate/PF 10 MG/10 ML AMPUL ONE (09:55)
[2020-04-16] MEDS ORDERED: *HR* FentaNYL (PF) 100 MCG/2 ML VIAL ONE (09:58)
[2020-04-16] MEDS ORDERED: Lidocaine -MPF 2% 2 ML VIAL ONE (09:58)
[2020-04-16] MEDS ORDERED: *HR* Rocuronium Bromide 50 MG/5 ML VIAL ONE ×2 (09:58→11:25)
[2020-04-16] MEDS ORDERED: *HR* Succinylcholine 200 MG/10 ML VIAL IVP ONE (09:58)
[2020-04-16] MEDS ORDERED: Lidocaine -MPF 4% 5 ML AMPUL ONE (09:58)
[2020-04-16] MEDS ORDERED: *HR* Midazolam HCl 2 MG/2 ML VIAL ONE (09:59)
[2020-04-16] MEDS ORDERED: *HR* Propofol 200 MG/20 ML VIAL IVP ONE (09:59)
[2020-04-16] MEDS ORDERED: *HR* PHENYLEPHRINE 1,000 MCG/10 ML SYRINGE IVP ONE (10:34)
[2020-04-16] MEDS ORDERED: Dexamethasone 4 MG/ML VIAL ONE (11:02)
[2020-04-16] MEDS ORDERED: Ondansetron 4 MG/2 ML VIAL ONE (11:02)
[2020-04-16] MEDS ORDERED: *HR* OxyCODONE/APAP 5/325 TABLET PO PRN (12:11)
[2020-04-16] MEDS ORDERED: Sennosides 8.6 MG TABLET PO PRN (12:11)
[2020-04-16] MEDS ORDERED: Naloxone 0.4 MG/ML INJ IVP PRN (12:11)
[2020-04-16] MEDS ORDERED: *HR* HYDROMORPHONE 2 MG/ML VIAL ONE (12:22)
[2020-04-16] MEDS: *HR* HYDROmorphone PF 0.5 MG/0.5 ML SYRINGE IVP PRN ×2 (12:45→13:10)
[2020-04-16] MEDS ORDERED: Ketorolac 30 MG/ML VIAL IVP ONE (12:52)
[2020-04-16] MEDS: Ondansetron 4 MG/2 ML VIAL IVP PRN ×2 (14:18→22:13)
[2020-04-16] MEDS ORDERED: *HR* Dextrose 50 % in Water (Syg) 50 ML SYRINGE IVP PRN (14:36)
[2020-04-16] MEDS ORDERED: Dextrose Gel 15 GM/37.5 ML TUBE PO PRN ×2 (14:36)
[2020-04-16] MEDS ORDERED: D5% in Water 1,000 ML IVC PRN (14:36)
[2020-04-16] MEDS: *HR* HYDROcodone/Acet 5/325 mg TABLET PO PRN ×2 (14:41→18:46)
[2020-04-16] MEDS: Ibuprofen 600 MG TABLET PO SCH ×2 (14:41→22:01)
[2020-04-16] MEDS ORDERED: traZODone 50 MG TABLET PO PRN (15:54)
[2020-04-16] MEDS ORDERED: Folic Acid 1 MG TABLET PO SCH (16:00)
[2020-04-16] MEDS ORDERED: Insulin LISPRO 300 UNITS/3 ML VIAL SQ SCH ×2 (16:30→21:00)
[2020-04-16] MEDS ORDERED: tiZANidine 4 MG TABLET PO SCH (21:00)
[2020-04-17] MEDS: Ibuprofen 600 MG TABLET PO SCH (05:08)
[2020-04-17 05:30] LABS: Basophils % 0.2 %; Eosinophils % 0.2 %; Hematocrit 31.6 % (35.3-44.9); Hemoglobin 10.2 g/dL (11.5-15.4); Immature Granulocytes % 0.8 % (0-4); Lymphocytes # 1.4 K/mcL (0.6-4.6); Lymphocytes % 15.8 %; Mean Corpuscular HGB Conc 32.3 g/dL (31.6-35.5); Mean Corpuscular Hemoglobin 28.9 pg (28.0-33.3); Mean Corpuscular Volume 89.5 fL (83.0-100.0); Mean Platelet Volume 9.1 fL (9.4-12.4); Monocytes # 0.9 K/mcL (0.0-1.3); Monocytes % 9.8 %; Neutrophils # 6.5 K/mcL (1.6-8.9); Platelet Count 295 K/mcL (140-400); Red Blood Count 3.53 M/mcL (3.82-4.97); Red Cell Distribution Width 14.1 % (11.5-14.5); Segmented Neutrophils % 73.2 %; White Blood Count 8.9 K/mcL (4.3-11.1)
[2020-04-17 05:48] LABS: BUN/Creatinine Ratio 16 (6-26); Blood Urea Nitrogen 11 mg/dL (6-20); Calcium 8.6 mg/dL (8.6-10.3); Carbon Dioxide 21 mEq/L (23-29); Chloride 107 mEq/L (98-107); Glucose 137 mg/dL (70-105); Magnesium 1.7 mg/dL (1.6-2.6); Osmolality,Calculated 284 (280-300); Potassium 3.6 mEq/L (3.5-5.1); Sodium 136 mEq/L (136-145); eGFR For African Americans > 60 (> 60); eGFR For Non-African Americans > 60 (> 60)
[2020-04-17 08:13] LABS: Estimated Average Glucose 169 mg/dl
[2020-04-17 08:27] VITALS: BP 135/102
[2020-04-17] MEDS ORDERED: lisinopriL 5 MG TABLET PO SCH (09:00)
[2020-04-17] MEDS ORDERED: Magnesium Oxide 400 MG TABLET PO SCH (09:00)
[2020-04-17] MEDS ORDERED: predniSONE 5 MG TABLET PO SCH (09:00)
[2020-04-17] MEDS ORDERED: Multivit/Ca/Min/Fe/FA 1 TAB TABLET PO SCH (09:00)
[2020-04-17] MEDS ORDERED: Loratadine 10 MG TABLET PO SCH (09:00)
[2020-04-17] MEDS ORDERED: Fluticasone Propionate Nasal 50 MCG/SPRAY BOTTLE NS SCH (09:00)
[2020-04-17 09:55] LABS: % Iron Saturation 7 % (15-50); Iron 25 mcg/dL (50-170); Transferrin 255 mg/dL (203-362)
[2020-04-17] MEDS: *HR* HYDROcodone/Acet 5/325 mg TABLET PO PRN ×2 (10:04)
== END 2020-04-17 10:46 | disposition home or self-care (01) | DRG 742 ==
LOC: SAMDAY 08:44 → 1NENUOBS 09:54
PROVIDERS: ADMIT Obstetrics & Gynecology; ATTEND Obstetrics & Gynecology